=== PATIENT | female | born 1940 | race Caucasian/White ===

== ENCOUNTER 2021-08-01 10:38 | Outpatient (CLI) | payer MEDICARE, SELFPAY ==
--- NOTE | 2021-08-01 10:47 | MR_ITS ---
WS: [id number] MRI LUMBAR SPINE NONCONTRAST HISTORY: LUMBAR Radiculopathy; protrusion OF LUMBAR INTERVERTEBRAL DISC. COMPARISON: 07/24/2021 CT. TECHNIQUE: Sagittal and axial multisequence imaging is submitted. Straightening of the normal cervical lordosis. Abnormal signal in the T3 is probably benign hemangiom a. Mild curvature lumbar spine to the RIGHT. Less than 2 mm anterolisthesis of L3. Benign hemangioma wit hin the L3 vertebral body. Disc desiccation throughout the lumbar spine. No lumbar spine fracture. Conus terminates normally at L1-2 disc level. L1-L2: Annular disc bulging and osteophytic ridging. LEFT paracentral disc protrusion contacts the ve ntral thecal sac. There is an additional smaller RIGHT paracentral disc protrusion. Mild bilateral payne barticular recess narrowing. Bilateral facet joint arthritis. L2-L3: Mild annular disc bulging and facet arthritis. Mild foraminal narrowing. L3-L4: Large extruded disc extends posterior to the L3 vertebral body and measures 13 mm in length. T here is effacement of fat in the LEFT foramen with significant encroachment upon the LEFT traversing L4 nerve root. Nerve root sleeve diverticulum in the RIGHT foramen. Mild bilateral ligamentum flavum hypertrophy. L4-L5: Mild annular disc bulging. Mild ligamentum flavum and facet arthritis. Fluid in the facet join ts. Very mild foraminal narrowing. L5-S1: Very small central disc protrusion. No contact on the nerve roots or high-grade stenosis. Smal l amount of fluid in the facet joints and mild facet arthritis. Status post LEFT nephrectomy. MR/MR lumbar spine wo con* [id number] IMPRESSION: 1. Extruded disc at the L3-4 level extends superior and posterior to L3 verteb ral body significant contact and displacement of the traversing L4 nerve root. Significant narrowing and fat effacement within the proximal LEFT L3-4 foramen. 2. Bilateral paracentral disc protrusions at L1-2 with mild encroachment upon the thecal sac and resulting in mild bilateral subarticular recess stenosis. 3. Status post LEFT nephrectomy.
== END 2021-08-01 10:39 | disposition home or self-care (01) ==
LOC: RADSHAW 10:44
PROVIDERS: PCP Registered Nurse; Visit Provider Registered Nurse
DX: M54.16 Radiculopathy, lumbar region (principal); M51.26 Other intervertebral disc displacement, lumbar region; Z90.5 Acquired absence of kidney
CPT/HCPCS: 72110; 72148

== ENCOUNTER → 2022-08-29 08:12 | Outpatient (BNVA) | payer MEDICARE, SELFPAY | PROVIDERS: PCP Registered Nurse; Visit Provider Internal Medicine Pulmonary Disease | DX: R91.1 Solitary pulmonary nodule (principal); R13.10 Dysphagia, unspecified; I10 Essential (primary) hypertension; Z77.22 Contact with and (suspected) exposure to environmental tobacco smoke (acute) (chronic); R09.82 Postnasal drip; R00.0 Tachycardia, unspecified; I48.91 Unspecified atrial fibrillation | CPT/HCPCS: 99204 ==

== ENCOUNTER → 2022-09-15 09:59 | Outpatient (BNVA) | payer MEDICARE, SELFPAY | PROVIDERS: PCP Registered Nurse; Visit Provider Internal Medicine Cardiovascular Disease | DX: I48.91 Unspecified atrial fibrillation (principal); R06.02 Shortness of breath; I12.9 Hypertensive chronic kidney disease with stage 1 through stage 4 chronic kidney disease, or unspecified chronic kidney disease; E11.22 Type 2 diabetes mellitus with diabetic chronic kidney disease; N18.9 Chronic kidney disease, unspecified; I44.0 Atrioventricular block, first degree; R94.31 Abnormal electrocardiogram [ECG] [EKG] | CPT/HCPCS: 93005; 99204; Q3014 ==

== ENCOUNTER 2022-10-10 10:03 | Outpatient (CLI) | payer MEDICARE, SELFPAY ==
--- NOTE | 2022-10-10 10:15 | USCV_ITS ---
Aniceto Silvia Age: 82 Gender: F : 1940 Exam Date: 10/10/2022 10:20 Ordering Phys: Cecy Valente MD ([email or web address]) Technologist: ELBA Exam Location: [facility] – [place] Indication: SHORTNESS OF BREATH BP: 170 / 60 HR: 68 Rhythm: Sinus Technical Quality: Adequate MEASUREMENTS (Male / Female) Normal Values 2D ECHO LVOT Diameter 2.0 cm LV Ejection Fraction MOD 2C 65.0 % LV Ejection Fraction 2C AL 69.2 % LA Diameter 3.5 cm LA Width 3.6 cm LA Height 4.1 cm RA Width 3.6 cm RA Height 4.1 cm Aorta at Sinotubular Diameter 2.5 cm IVC Diameter 1.6 cm M-MODE Aortic Annulus Diameter 2.4 cm LA Ao Ratio MM 1.4 MV E Point Septal Separation 0.3 cm DOPPLER AV Peak Velocity 144.0 cm/s LVOT Peak Velocity 99.0 cm/s AV Area Cont Eq vti 2.5 cm squared AV Area Cont Eq pk 2.2 cm squared MV Peak Velocity 145.0 cm/s MV Area PHT 4.5 cm squared Mitral E to A Ratio 0.8 MV E' Velocity 47.5 cm/s Mitral E to MV E' Ratio 8.6 Mitral E to LV E' Lateral Ratio 8.9 Mitral E to LV E' Septal Ratio 8.4 TR Peak Velocity 327.0 cm/s TR Peak Gradient 42.8 mmHg TR Mean Velocity 269.4 cm/s TR Mean Gradient 30.3 mmHg TR Velocity Time Integral 121.6 cm TV Peak E Velocity 51.0 cm/s Right Atrial Pressure 3.0 mmHg Pulmonary Artery Systolic Pressu 45.8 mmHg PV Peak Velocity 104.0 cm/s RV Acceleration Time 0.1 s RV Ejection Time 0.4 s RV AcT/ET 0.4 FINDINGS Left Ventricle 1 Right Ventricle Normal right ventricular size and systolic function. Right ventricular systolic pressure 45.8 mmHg. Right Atrium Normal right atrial size. Left Atrium Mildly increased left atrial size. Mitral Valve Mild mitral annular calcification. No mitral valve stenosis. Trace mitral valve regurgitation. Aortic Valve Structurally normal trileaflet aortic valve. No aortic valve stenosis. No aortic valve regurgitation. Tricuspid Valve Structurally normal tricuspid valve. No tricuspid valve stenosis. Trace to mild tricuspid valve regurgitation. Pulmonic Valve Pulmonic valve not well visualized. No pulmonary valve stenosis. No pulmonary valve regurgitation. Pericardium No pericardial effusion. Aorta Normal size aortic root and proximal ascending aorta. IVC Normal IVC dimension with >50% respiratory change of the inferior vena cava. CONCLUSIONS 1. Normal left ventricular size, systolic function and wall thickness, with no regional wall motion abnormalities. Left ventricular ejection fraction is estimated at 65 %. Grade I diastolic dysfunction (abnormal relaxation filling pattern), normal to mildly elevated filling pressures. 2. Trace mitral valve regurgitation. 3. No prior similar studies to compare. Cecy Valente MD (Electronically Signed) Final Date: 17 October 2022 13:00 S
== END 2022-10-10 10:04 | disposition home or self-care (01) ==
PROVIDERS: PCP Registered Nurse; Visit Provider Internal Medicine Cardiovascular Disease
DX: R06.02 Shortness of breath (principal); I34.0 Nonrheumatic mitral (valve) insufficiency
CPT/HCPCS: 93306

== ENCOUNTER 2022-10-22 10:57 | Outpatient (CLI) | payer MEDICARE, SELFPAY ==
[2022-10-22 12:32] LABS: Anion Gap 15.8 (5-19); Blood Urea Nitrogen 36 mg/dL (8-23); Calcium 9.4 mg/dL (8.5-10.5); Carbon Dioxide 27 mmol/L (22-29); Chloride 101 mmol/L (98-107); Glucose 131 mg/dL (65-115); NT Pro B Type Natriuretic Pept 463 pg/mL (0-450); Osmolality Calculated 298 mOsm/kg (285-295); Potassium 4.8 mmol/L (3.5-5.1); Sodium 139 mmol/L (136-145)
== END 2022-10-22 10:58 | disposition home or self-care (01) ==
LOC: LAB 11:00
PROVIDERS: PCP Registered Nurse; Visit Provider Nurse Practitioner Family
DX: I10 Essential (primary) hypertension (principal); I48.91 Unspecified atrial fibrillation
CPT/HCPCS: 36415; 80048; 83880

== ENCOUNTER 2022-11-24 08:58 | Outpatient (CLI) | payer MEDICARE, SELFPAY ==
--- NOTE | 2022-11-24 09:30 | CT_ITS ---
WS: [id number] CT CHEST TECHNIQUE: Noncontrast CT of the chest with coronal and sagittal reformatted images. CLINICAL INFORMATION: lung screening COMPARISON: CT August 11, 2022 DLP: 203.[address] scans at [facility] use at least one of these dose optimization techniques: automated e xposure control; mA and/or kV adjustment per patient size (includes targeted exams where dose is matc hed to clinical indication); or iterative reconstruction. FINDINGS: Previously described hazy slightly spiculated RIGHT upper lobe lesion has improved and essentially re solved. Residual groundglass opacity in the RIGHT upper lobe. Subsegmental atelectasis in the RIGHT m iddle lobe. Slight subsegmental atelectasis RIGHT lower lobe. Opacity in the LEFT upper lobe lung ape x posteriorly has improved and nearly resolved. A few residual groundglass opacities in the LEFT lowe r lobe laterally improved compared to previous. No evidence of new or progressed infiltrates. Small RIGHT thyroid nodules the largest measuring 10 mm. No mediastinal or hilar lymphadenopathy. Cor onary calcification. No axillary lymphadenopathy. Dystrophic calcifications RIGHT breast are unchange d. Adrenal glands are normal. Mild thoracic curve. Mild thoracic kyphosis. CT/CT chest wo con [id number] IMPRESSION: 1. Previously described opacities have improved and nearly resolved compared t o previous compatible with infectious or inflammatory etiologies. 2. No mediastinal or hilar lymphadenopathy. 3. Coronary calcification. 4. A few subcentimeter partially visualized RIGHT thyroid nodules.
== END 2022-11-24 08:59 | disposition home or self-care (01) ==
PROVIDERS: PCP Registered Nurse; Visit Provider Internal Medicine Pulmonary Disease
DX: Z12.2 Encounter for screening for malignant neoplasm of respiratory organs (principal); R91.1 Solitary pulmonary nodule; E04.1 Nontoxic single thyroid nodule
CPT/HCPCS: 71250

== ENCOUNTER → 2022-11-27 09:54 | Outpatient (BNVA) | payer MEDICARE, SELFPAY | PROVIDERS: PCP Registered Nurse; Visit Provider Internal Medicine Pulmonary Disease | DX: R91.8 Other nonspecific abnormal finding of lung field (principal); R13.10 Dysphagia, unspecified; I10 Essential (primary) hypertension; Z86.16 Personal history of COVID-19; R09.82 Postnasal drip; R00.0 Tachycardia, unspecified | CPT/HCPCS: 99214 ==

== ENCOUNTER 2022-12-24 08:38 | Outpatient (CLI) | payer MEDICARE, SELFPAY ==
--- NOTE | 2022-12-24 09:15 | FL_ITS ---
WS: [id number] FL barium swallow [id number] REASON FOR EXAM: Abnormal CT scan of the neck. FLUOROSCOPY TIME: 1min [id number] # OF SPOT FILMS: Multiple FINDINGS: Patient was evaluated in the upright and prone COY position. The swallowing of barium was monitored f luoroscopically with multiple spot films obtained for documentation. The cervical esophagus is normal without intrinsic or extrinsic mass effect. The thoracic esophagus demonstrates no extrinsic or intrinsic mass effect. In the prone position ther e is intermittent loss of the primary peristaltic wave with degeneration into tertiary contractions w hich produce retention of barium and intermittent reflux of this barium retrograde towards the thorac ic inlet. No aspiration identified. There is a small sliding hiatal hernia with non constricting Schatzki ring. FL/FL barium swallow [id number] IMPRESSION: Esophageal dysmotility as above.
== END 2022-12-24 08:39 | disposition home or self-care (01) ==
PROVIDERS: PCP Registered Nurse; Visit Provider Internal Medicine Pulmonary Disease
DX: R13.10 Dysphagia, unspecified (principal); K44.9 Diaphragmatic hernia without obstruction or gangrene
CPT/HCPCS: 74220

== ENCOUNTER → 2023-03-16 10:53 | Outpatient (BNVA) | payer MEDICARE, SELFPAY | PROVIDERS: PCP Registered Nurse; Visit Provider Internal Medicine Cardiovascular Disease | DX: I48.91 Unspecified atrial fibrillation (principal); I12.9 Hypertensive chronic kidney disease with stage 1 through stage 4 chronic kidney disease, or unspecified chronic kidney disease; E11.22 Type 2 diabetes mellitus with diabetic chronic kidney disease; N18.9 Chronic kidney disease, unspecified | CPT/HCPCS: 99214 ==

== ENCOUNTER → 2023-05-28 09:30 | Outpatient (BNVA) | payer MEDICARE, SELFPAY | PROVIDERS: PCP Registered Nurse; Visit Provider Internal Medicine Pulmonary Disease | DX: R91.1 Solitary pulmonary nodule (principal); R13.10 Dysphagia, unspecified; I10 Essential (primary) hypertension; J30.9 Allergic rhinitis, unspecified; Z86.16 Personal history of COVID-19; Z91.128 Patient's intentional underdosing of medication regimen for other reason; Z77.22 Contact with and (suspected) exposure to environmental tobacco smoke (acute) (chronic) | CPT/HCPCS: 99214 ==

== ENCOUNTER 2023-11-25 16:56 | Inpatient (IN) | payer MEDICARE, SELFPAY ==
[2023-11-25] VITALS (8 sets, daily range): BP systolic 138–193; BP diastolic 58–79; PULSE 71–90; RESP 16–28; TEMP 36.9; O2SAT 93–97; BMI 31.3
--- NOTE | 2023-11-25 18:04 | USCV_ITS ---
Silvia Moreland Age: 83 Gender: F : 1940 Exam Date: 11/25/2023 18:48 Ordering Phys: Srinivasan Jin MD Technologist: Exam Location: [facility] [place] Indication: htn crisis BP: 193 / 71 HR: 68 Rhythm: Sinus Technical Quality: Adequate MEASUREMENTS (Male / Female) Normal Values 2D ECHO LV Diastolic Diameter PLAX 4.1 cm 4.2 - 5.9 / 3.9 - 5.3 cm IVS Diastolic Thickness 1.4 cm 0.6 - 1.0 / 0.6 - 0.9 cm IVS Systolic Thickness 1.5 cm LVPW Diastolic Thickness 1.6 cm 0.6 - 1.0 / 0.6 - 0.9 cm LVPW Systolic Thickness 1.7 cm LVOT Diameter 2.2 cm LV Ejection Fraction 2D Teich 66.8 % LV Ejection Fraction MOD 2C 75.4 % LV Ejection Fraction 2C AL 74.7 % LA Diameter 3.0 cm RA Systolic Volume 4C AL 30.1 ml RA Systolic Volume 4C MOD 28.4 ml Aorta at Sinotubular Diameter 2.5 cm IVC Diameter 1.9 cm M-MODE LA Ao Ratio MM 1.1 AV Cusp Separation MM 1.5 cm DOPPLER AV Peak Velocity 157.7 cm/s LVOT Peak Velocity 106.0 cm/s AV Area Cont Eq vti 3.1 cm squared AV Area Cont Eq pk 2.5 cm squared MV Peak Velocity 111.0 cm/s MV Area PHT 9.7 cm squared Mitral E to A Ratio 6.0 TR Peak Velocity 213.0 cm/s TR Peak Gradient 18.1 mmHg TV Peak E Velocity 246.0 cm/s Right Atrial Pressure 3.0 mmHg Pulmonary Artery Systolic Pressu 21.1 mmHg PV Peak Velocity 127.5 cm/s FINDINGS Left Ventricle Moderate concentric left ventricular hypertrophy with normal ejection fraction of 75%.Grade II/IV diastolic dysfunction, moderately elevated filling pressures. Right Ventricle Normal right ventricular systolic function. Right Atrium The right atrium is normal in size. Left Atrium Mildly increased left atrial size. Mitral Valve Mild mitral valve regurgitation. Aortic Valve Thickened aortic valve. Tricuspid Valve Trace tricuspid valve regurgitation. Pulmonic Valve Trace pulmonary valve regurgitation. Pericardium Normal pericardium without effusion. Aorta Normal ascending aorta dimension. IVC Normal inferior vena cava. CONCLUSIONS Moderate concentric left ventricular hypertrophy with normal ejection fraction of 75%. Grade II/IV diastolic dysfunction, moderately elevated filling pressures. Mildly increased left atrial size. Mild mitral valve regurgitation. Thickened aortic valve. Trace tricuspid valve regurgitation. Trace pulmonary valve regurgitation. There is no pericardial effusion. There are no intracardiac masses. Compared to the study from 10/10/2022, there may not be significant change, except for the worsening diastolic dysfunction. Dr Donnie Webb MD FAC (Electronically Signed) Final Date: 25 November 2023 23:52 S
--- NOTE | 2023-11-25 18:09 | P.HP_ITS ---
Providers/Chief Complaint 2 Admitting Physician: Srinivasan Jin MD Primary Care Provider: Cynthia Martinez Chief Complaint: Symptomatic bradycardia History of Present Illness Silvia Moreland is a 83 year old female with past medical history of hypertension, left nephrectomy for RCC presented to the outside ER today because of high blood pressure. Patient states when she woke up today morning she was having headache will mild fogginess so she checked her blood pressures and they were running more than 200 systolics which is unusual for her and she went to the ER. In the ER there was a concern for patient having frequent VPCs and possible bigeminy with high blood pressure so they requested a transfer to [facility] [place]. It seems that the other hospital she had received 2 doses of 10 mg IV hydralazine, bolus of 250 cc of normal saline, full dose of aspirin and oral Zofran. On examination, patient is lying comfortably in bed without any nausea or vomiting. States she took all her morning medications. She denies of having any complaints currently. Denies any chest pain, fluttering in the chest, nausea, vomiting, headache, dizziness, shortness of breath at rest or exertion last few weeks, and a history of CAD but does give family history of congestive heart failure. Blood pressures at 197 systolic with heart rate of 92 bpm with frequent PVCs and occasional bigeminy. Review of Systems 2 General: Reports: 10 or more systems reviewed and unremarkable except in HPI and below Const: Denies: fever(s), chills, body aches, change in appetite, change in weight, malaise, night sweats, diaphoresis, change in sleep pattern, daytime sleepiness or snoring Eyes: Denies: change in vision, blurry vision, photophobia, eye discomfort or eye discharge ENMT: Denies: throat pain, enlarged tonsils, hoarseness, mouth pain, oral sores, dry mouth, tinnitus, nasal congestion or post nasal drip Card: Denies: chest pain, palpitations, irregular heart rhythm, edema, swelling of feet/ankles, lightheadedness, syncope, pre-syncope, dyspnea on exertion, orthopnea, leg pain with exertion or acrocyanosis Resp: Denies: dyspnea, productive cough, non-productive cough, wheezing, stridor, pain on inspiration, change in phlegm color, hemoptysis or chest congestion GI: Denies: abdominal pain, nausea, vomiting, hematemesis, coffee ground emesis, dysphagia, heartburn, diarrhea, constipation, bloating, GI cramping, change in bowel habits, pain on defecation, hematochezia or melena : Denies: flank pain, dysuria, urinary frequency, urinary urgency, urinary hesitancy, nocturia or hematuria Musc: Denies: neck pain, back pain, extremity pain, joint pain, joint swelling, joint redness, joint stiffness or limited range of motion Neuro: Denies: headache(s), numbness in extremities, weakness in extremities, sensory changes, lack of coordination, difficulty walking, frequent falls, dizziness, vertigo, confusion, Slurred speech present, difficulty communicating thoughts or seizure-like activity Psych: Denies: anxiety, depression, mood swings, panic attacks, hopelessness or irritability Endo: Denies: polyuria, polydipsia, tired all the time, cold intolerance, excessive sweating, flushing or heat intolerance Oleg/Lymph: Denies: easy bruising or easy bleeding All/Imm: Denies: tongue swelling, facial swelling or acute wheezing Medications/Allergies Home Medications Medication Instructions Recorded Confirmed Last Taken Type diltiazem HCl 360 mg 360 mg PO DAILY 08/01/21 05/28/23 Unknown History capsule,extended release 24 hr hydrochlorothiazide 25 mg tablet 25 mg PO DAILY 08/01/21 05/28/23 Unknown History enalapril maleate 20 mg tablet 20 mg PO BID 09/15/22 05/28/23 Unknown History multivitamin 1 tab PO DAILY 09/15/22 05/28/23 Unknown History aspirin 81 mg tablet,delayed 81 mg PO DAILY PRN 03/16/23 05/28/23 Unknown History release (Adult Low Dose Aspirin) fluticasone propionate 50 1 spray intranasal BID #18 mL 05/28/23 05/28/23 Unknown Rx mcg/actuation nasal spray,suspension (Flonase Allergy Relief) Allergies Allergy/AdvReac Type Severity Reaction Status Date / Time ciprofloxacin Allergy Intermediate ALGY-Swell Verified 05/28/23 09:37 Lip/Tongue/Throat PFSH Acute 2 PFSH: Medical History (Updated 11/25/23 @ 18:13 by Srinivasan Jin MD) Atrial fibrillation History of kidney cancer CRI (chronic renal insufficiency) Diabetes mellitus S/p nephrectomy (~2014) Hypertension Surgical History S/P thyroidectomy S/P hysterectomy S/P bilateral oophorectomy S/P hip replacement H/O kidney removal Family History Father Hypertension Myocardial infarction Mother Stroke Family/Other CAD (coronary artery disease) Social History Smoking and tobacco/nicotine status: never used tobacco/nicotine Second hand smoke exposure: Yes (reports parents and both smoked) Alcohol intake: never Substance/Drug Use: never Adopted: No Caregiver/support person: Yes Lives independently: Yes Household members: none Housing: House Number of children: 4 Number of grandchildren: 3 Highest education level completed: 8th Grade service: No Current occupational status: retired Current occupational exposures/hazards: No 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 Pets and animals: Yes Sexually active: No Do you think of yourself as: Straight/Heterosexual Current gender identity: Female Special chance needs: No Agree to transfusion: Yes Physical Exam 2 Narrative: General: No acute distress, AO x3 HEENT: PERRLA, pupils bilaterally equal and reactive Chest: Normal vesicular breath sounds, no added sounds, equal good air entry bilaterally CVS: S1-S2 regular, no murmurs, no tachycardia, no gallops, no rubs, frequent missed beats Abdomen: Soft, nontender, no organomegaly, bowel sounds present Neuro: No focal deficits, no facial deformity, AO x3, power 5/5 in all limbs Data 11/25/23 17:33 A&P Assessment and plan (1) Hypertensive urgency: Goal blood pressure less than 140/90 mmHg. Currently more than 190 systolics with frequent VPCs. Patient takes Cardizem to 60 mg oral daily at home, enalapril 20 mg twice daily along with hydrochlorothiazide 25. IV hydralazine 10 mg every 4 hour as needed for systolic blood pressure of more than 160 mmHg. Switch to losartan 100 mg oral daily, start on Coreg 6.25 mg twice daily. Continue Cardizem but for now we will divide within 90 every 6 hours. Will uptitrate antihypertensives as per goal blood pressures. Hold hydrochlorothiazide for now until renal functions are back. If needed can start patient on nitro drip. (2) Frequent PVCs: Asymptomatic. Patient denies any dizziness or falls. It seems patient does have history of arrhythmia in the past for which she was diagnosed of paroxysmal A-fib but was never documented. Currently patient is in normal sinus rhythm. Check CMP, cycle troponins, check echocardiogram, check magnesium, TSH. Depending on the results we will plan for further ACS workup if needed. She does have history of partial thyroidectomy. If all the testing is negative we will plan to discharge patient with an event monitor. (3) Hypertension: As #1 (4) Diabetes mellitus: Past history the patient does not seem to be on any antidiabetic medications. Check A1c. (5) CRI (chronic renal insufficiency): Last creatinine in the chart is 1.2 from 2022. Will monitor CMP. Medically construction and for nephrotoxic drugs. Depending on the BMP will plan for renal ultrasound. Plan Check chest x-ray, EKG, A1c, lipid panel, iron panel. CODE STATUS: Discussed in detail with the patient. She does not want any kind of heroic measures or resuscitation. DNR/DNI. Kalli Moreland Protonix OPD prophylaxis Lovenox for DVT prophylaxis will be the DPOA. Attestations 2 Medical Necessity Statement*: Admission for more than 2 midnights for further evaluation and management of hypertensive urgency, frequent VPCs Critical Care Time: The high probability of a clinically significant, sudden or life threatening deterioration of the patient's [cardiac] system(s) required my full and direct attention, intervention and personal management. The critical care time is as shown. This time is in addition to time spent performing any reported procedures but includes the following: [x] Data and vital sign review and interpretation [x] Patient assessment, examination and intervention [x] Documentation [x] Medication orders and management Coding Level of Care Code Critical Care >/= 30 minutes Critical care time (in minutes): 70 The high probability of a clinically significant, sudden or life threatening deterioration, as referenced in this documentation, required my full and direct attention, intervention and personal management. The critical care time shown is in addition to time spent performing any reported separately billable procedures and includes the following: [x] Data and vital sign review and interpretation [x ] Patient assessment, examination and intervention [x] Medication orders and management [x] Patient/Family updates as able [x] Care Coordination and Documentation. Diagnoses Hypertensive urgency I16.0 Frequent PVCs I49.3 Hypertension I10 Diabetes mellitus E11.9 CRI (chronic renal insufficiency) N18.9
[2023-11-25 18:11] LABS: Procalcitonin 0.07 ng/mL (0-0.5); Thyroid Stimulating Hormone 1.95 uIU/mL (0.27-4.20)
[2023-11-25 18:22] LABS: Alanine Aminotransferase 16 U/L (0-33); Albumin Level 4.1 g/dL (3.5-5.2); Alkaline Phosphatase 85 U/L (35-105); Aspartate Amino Transferase 19 U/L (0-32); Blood Urea Nitrogen 38 mg/dL (8-23); Calcium 9.6 mg/dL (8.5-10.5); Carbon Dioxide 23 mmol/L (22-29); Chloride 102 mmol/L (98-107); Creatinine Clr Calc Pharmacy 29.4759; Globulin 2.7 g/dL (1.3-4.6); Glucose 166 mg/dL (65-115); Iron 45 ug/dL (37-145); Osmolality Calculated 303 mOsm/kg (285-295); Percent Saturation 18.2 % (20-50); Sodium 140 mmol/L (136-145); Total Bilirubin 0.2 mg/dL (0.15-1.2); Total Iron Binding Capacity 247 mcg/dl; Total Protein 6.8 g/dL (6.6-8.7); Unsaturated Iron Binding 202 ug/dL (112-347)
--- NOTE | 2023-11-25 18:23 | XRR_ITS ---
PROCEDURE INFORMATION: Exam: XR Chest Exam date and time: 11/25/2023 7:53 PM Age: 83 years old Clinical indication: Shortness of breath; Additional info: SOB TECHNIQUE: Imaging protocol: Radiologic exam of the chest. Views: 1 view. COMPARISON: CT chest con [id number] 11/24/2022 9:25 AM FINDINGS: Lungs: Unremarkable. No consolidation. Pleural spaces: Unremarkable. No pleural effusion. No pneumothorax. Heart/Mediastinum: Cardiomegaly. Bones/joints: Unremarkable. XR/XR chest 1V portable [id number] IMPRESSION: Cardiomegaly, negative for infiltrate.
--- NOTE | 2023-11-25 18:30 | ECG_ITS ---
[facility] Test Date: 2023-11-25 Pat Name: Silvia Moreland Department: Room: ICU12 Gender: Female Tobacco Stripper: : 1940 Requested By: Srinivasan Jin Order Number: [id number] Trent MD: Faisal Gaytan M.D. Measurements Intervals [place] Rate: 94 P: 75 MI: 169 QRS: 57 QRSD: 86 T: 62 QT: 355 QTc: 445 Interpretive Statements SINUS RHYTHM WITH FREQUENT VENTRICULAR PREMATURE COMPLEXES POSSIBLE LEFT ATRIAL ENLARGEMENT [-0.1mV P-WAVE IN V1/V2] No previous ECG available for comparison Electronically Signed On 11-25-2023 22:11:25 CDT by Faisal Gaytan M.D. [id number]
[2023-11-25 18:33] LABS: Anion Gap 19.7 (5-19); Potassium 4.7 mmol/L (3.5-5.1)
[2023-11-25] MEDS: carvedilol 6.25 mg Tablet PO (18:40)
[2023-11-25] MEDS: enoxaparin 40 mg/0.4 mL Syringe SUBCUT (18:40)
[2023-11-25] MEDS: sodium chloride 0.9% 1,000 ML 75 ML IV (18:41)
[2023-11-25] MEDS: losartan 50 mg Tablet 100 MG PO (18:42)
[2023-11-25 18:43] LABS: Basophils % 0.4 %; Eosinophils % 0.2 %; Hematocrit 41.7 % (36-47); Lymphocytes # 1.1 10^3/uL (0.8-4.8); Mean Corpuscular HGB Conc 32.4 g/dL (30-55); Mean Corpuscular Hemoglobin 30.1 pg (27-33); Mean Corpuscular Volume 92.9 fl (85-98); Mean Platelet Volume 9.5 fL (7.4-10.4); Monocytes # 0.4 10^3/uL (0.2-0.9); Monocytes % 3.8 %; Neutrophils # 9.54 10^3/uL (1.8-7.7); Neutrophils % 85.2 %; Nucleated Red Blood Cells % 0 %; Platelet Count 266 10^3/cmm (157-399); Red Blood Count 4.49 10^6/uL (3.85-5.65); Red Cell Distribution Width 14.4 % (12.1-15.1); White Blood Count 11.19 10^3/uL (3.29-11.43)
[2023-11-25 18:57] LABS: INR 0.96 (0.8-1.2)
[2023-11-25 19:02] LABS: Troponin(5th) Baseline 42 ng/L (0-10)
--- NOTE | 2023-11-25 20:05 | ECG_ITS ---
[facility] Test Date: 2023-11-25 Pat Name: Silvia Moreland Department: Room: ICU12 Gender: Female Broadcast Transmitter Operator: : 1940 Requested By: Srinivasan Jin Order Number: [id number] Trent MD: Faisal Gaytan M.D. Measurements Intervals [place] Rate: 88 P: 79 RI: 158 QRS: 38 QRSD: 90 T: 40 QT: 359 QTc: 436 Interpretive Statements SINUS RHYTHM WITH FREQUENT VENTRICULAR PREMATURE COMPLEXES POSSIBLE LEFT ATRIAL ENLARGEMENT [-0.1mV P-WAVE IN V1/V2] Compared to ECG 11/25/2023 18:30:21 No significant changes Electronically Signed On 11-25-2023 22:12:17 CDT by Faisal Gaytan M.D. [id number]
[2023-11-25 20:51] LABS: Add Urine Culture? No; Add Urine Microscopic? YES; Bacteria Urine TRACE /hpf; Bilirubin Urine Neg (Negative); Blood Urine 2+ (Negative); Glucose Urine UA Norm (Normal); Ketones Urine Negative (Negative); Leukocyte Esterase Urine Negative (Negative); Mucus Urine TRACE /hpf; Nitrate Urine Negative (Negative); Protein Urine 3+ (Negative); RBC Urine 0-4 /hpf (0-2); Specific Gravity, Urine 1.015 (1.005-1.030); Urine Appearance Clear (CLEAR); Urine Color Yellow (Yellow); Urobilinogen Urine Neg (Negative); WBC Urine 0-4 /hpf (0-5); pH Urine 6 (5-7)
[2023-11-25 21:01] LABS: Troponin 5 2HR 45.53 ng/L (0-10); Troponin 5 2HR Delta 3.53 ABS# (0-10)
[2023-11-25] MEDS: hyDRALAzine 20 mg/mL INJ 1 mL 10 MG IVP (21:04)
[2023-11-25 21:50] LABS: Adenovirus Not Detected (NOT DETECT); Chlamydia Pneumoniae Not Detected (NOT DETECT); Coronavirus 229E,HKU1,NL63,OC4 Not Detected (NOT DETECT); Human Metapneumovirus Not Detected (NOT DETECT); Human Rhinovirus/Enterovirus Not Detected (NOT DETECT); Influenza A Not Detected (NOT DETECT); Influenza A H1 Not Detected (NOT DETECT); Influenza A H1-2009 Not Detected (NOT DETECT); Influenza A H3 Not Detected (NOT DETECT); Influenza B Not Detected (NOT DETECT); Mycoplasma Pneumoniae Not Detected (NOT DETECT); Parainfluenza Virus Type 1 Not Detected (NOT DETECT); Parainfluenza Virus Type 2 Not Detected (NOT DETECT); Parainfluenza Virus Type 3 Not Detected (NOT DETECT); Parainfluenza Virus Type 4 Not Detected (NOT DETECT); Respiratory Syncytial Virus A Not Detected (NOT DETECT); Respiratory Syncytial Virus B Not Detected (NOT DETECT); SARS-COV-2 Not Detected (NOT DETECT)
[2023-11-25] MEDS: ondansetron 2 mg/ML SDV 2 mL 4 MG IVP (22:15)
[2023-11-26] VITALS (19 sets, daily range): BP systolic 125–167; BP diastolic 49–74; PULSE 60–83; RESP 15–30; TEMP 36.6–37; O2SAT 92–97; BMI 31.1
[2023-11-26 01:03] LABS: Troponin 5 6HR 44.86 ng/L (0-10); Troponin 5 6HR Delta 2.86 ng/L (0-12)
[2023-11-26] MEDS: acetaminophen 325 mg Tablet 650 MG PO (03:07)
[2023-11-26] MEDS: hyDRALAzine 20 mg/mL INJ 1 mL 10 MG IVP (03:10)
[2023-11-26 03:56] LABS: Basophils # 0.1 10^3/uL (0.0-0.1); Basophils % 0.7 %; Eosinophils % 0.2 %; Hematocrit 38.7 % (36-47); Lymphocytes # 1.5 10^3/uL (0.8-4.8); Lymphocytes % 15.2 %; Mean Corpuscular HGB Conc 32.3 g/dL (30-55); Mean Corpuscular Hemoglobin 30.3 pg (27-33); Mean Corpuscular Volume 93.7 fl (85-98); Mean Platelet Volume 9.4 fL (7.4-10.4); Monocytes # 0.5 10^3/uL (0.2-0.9); Monocytes % 4.5 %; Neutrophils # 8.01 10^3/uL (1.8-7.7); Neutrophils % 79.1 %; Nucleated Red Blood Cells % 0 %; Platelet Count 246 10^3/cmm (157-399); Red Blood Count 4.13 10^6/uL (3.85-5.65); Red Cell Distribution Width 14.5 % (12.1-15.1); White Blood Count 10.13 10^3/uL (3.29-11.43)
[2023-11-26 04:14] LABS: Alanine Aminotransferase 13 U/L (0-33); Albumin Level 3.6 g/dL (3.5-5.2); Alkaline Phosphatase 75 U/L (35-105); Anion Gap 16.6 (5-19); Aspartate Amino Transferase 15 U/L (0-32); Blood Urea Nitrogen 37 mg/dL (8-23); Calcium 8.8 mg/dL (8.5-10.5); Carbon Dioxide 24 mmol/L (22-29); Chloride 103 mmol/L (98-107); Creatinine Clr Calc Pharmacy 29.4759; Globulin 3.2 g/dL (1.3-4.6); Glucose 164 mg/dL (65-115); Magnesium 1.8 mg/dL (1.7-2.3); Osmolality Calculated 300 mOsm/kg (285-295); Phosphorus 4.1 mg/dL (2.5-4.5); Potassium 4.6 mmol/L (3.5-5.1); Sodium 139 mmol/L (136-145); Total Bilirubin 0.3 mg/dL (0.15-1.2); Total Protein 6.8 g/dL (6.6-8.7)
[2023-11-26 04:17] LABS: Chol HDL Ratio 4.64 mg/dL (0.0-4.40); Cholesterol 274 mg/dL (0-200); HDL Cholesterol 59 mg/dL (60-100); LDL Cholesterol Calculated 181 mg/dL (50-129); LDL HDL Ratio 3.07 RATIO (0.00-3.22); Triglycerides 171 mg/dL (0-150)
[2023-11-26 04:19] LABS: Estmated Average Glucose 163; Hemoglobin A1C 7.3 % (4.0-6.0)
[2023-11-26] MEDS: dilTIAZem 60 mg Tablet 90 MG PO (06:32)
[2023-11-26] MEDS: sodium chloride 0.9% 1,000 ML 75 ML IV (07:45)
[2023-11-26] MEDS: losartan 50 mg Tablet 100 MG PO (08:14)
[2023-11-26] MEDS: pantoprazole DR 40 mg Tablet PO (08:14)
[2023-11-26] MEDS: carvedilol 6.25 mg Tablet PO ×2 (08:14→17:56)
[2023-11-26] MEDS: aspirin 81 mg EC Tablet PO (08:40)
--- NOTE | 2023-11-26 12:44 | PC.NURSE ---
Transfer Note Patient transferred to CSU room 105 from ICU via wheelchair. Handoff report given to MONICA Mcnulty. Patient oriented to environment and equipment. Covering service notified. Orders reviewed and will continue to monitor. This nurse notified Kalli, patient friend, that patient was being transferred to CSU room 105. Upon transfer patient is alert/oriented on room air, no wounds or skin issues noted.
--- NOTE | 2023-11-26 13:25 | P.PN_ITS ---
Subjective 2 Subjective: No acute vents overnight. Patient denies any nausea, vomiting, headache. States she is feeling a lot better. Denies having any episodes of palpitations or thumping in her chest. Denies any dizziness. Blood pressures have remained stable though it seems she required 2 doses of 10 mg of IV hydralazine overnight. Vitals/I&O/Wt Last Vital Signs Temp 97.8 F 11/26/23 08:00 Pulse 66 11/26/23 12:00 Resp 30 H 11/26/23 12:00 BP 145/67 11/26/23 12:00 Pulse Ox 95 11/26/23 12:00 O2 Del Method Room Air 11/26/23 06:00 11/25/23 11/26/23 11/26/23 22:59 06:59 14:59 Intake Total 240 / 240 915.00 / 1155.00 915 / 915 Balance 240 / 240 915.00 / 1155.00 915 / 915 Weight last 48 hrs Weight 79.832 kg Weight 80.286 kg Physical Exam 2 Narrative: General: No acute distress, AO x3 HEENT: PERRLA, pupils bilaterally equal and reactive Chest: Normal vesicular breath sounds, no added sounds, equal good air entry bilaterally CVS: S1-S2 regular, no murmurs, no tachycardia, no gallops, no rubs, frequent missed beats Abdomen: Soft, nontender, no organomegaly, bowel sounds present Neuro: No focal deficits, no facial deformity, AO x3, power 5/5 in all limbs Data 11/26/23 03:45 11/26/23 03:45 Micro: Microbiology 11/25/23 18:27 Blood Culture - Preliminary Blood SPECIMEN COLLECTED 11/25/23 18:21 Blood Culture - Preliminary Blood SPECIMEN COLLECTED A&P Assessment and plan (1) Hypertensive urgency: Goal blood pressure less than 140/90 mmHg. Blood pressure is better controlled. Patient takes Cardizem to 60 mg oral daily at home, enalapril 20 mg twice daily along with hydrochlorothiazide 25. Continue losartan 100 mg oral daily, Coreg 6.25 mg twice daily, decrease dose of Cardizem at 60 mg 4 times daily. If needed will add oral hydralazine to reach goal blood pressures. IV hydralazine 10 mg every 4 hour as needed for systolic blood pressure of more than 160 mmHg. (2) Frequent PVCs: Asymptomatic. Patient denies any dizziness or falls. No episodes of bradycardia overnight. It seems patient does have history of arrhythmia in the past for which she was diagnosed of paroxysmal A-fib but was never documented. Currently patient is in normal sinus rhythm. Appreciate electrolytes, troponin. Echocardiogram does not show any regional wall motion abnormality, structural heart disease or decreased EF. 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 Plan for event monitor on discharge. (3) Hypertension: As #1 (4) Diabetes mellitus: Past history the patient does not seem to be on any antidiabetic medications. A1c 7.3. Patient will benefit with Jardiance on discharge given diastolic type dysfunction as well. (5) CRI (chronic renal insufficiency): Last creatinine in the chart is 1.2 from 2022. Creatinine stable at 1.4. Patient's oral intake as well. Hold off on any further IV fluids. Medically construction and for nephrotoxic drugs. Depending on the BMP will plan for renal ultrasound. Plan Hyperlipidemia: Consistent on lipid panel. Start on baby aspirin and atorvastatin 40 mg oral daily. CODE STATUS: Discussed in detail with the patient. She does not want any kind of heroic measures or resuscitation. DNR/DNI. Kalli Moreland Protonix OPD prophylaxis Lovenox for DVT prophylaxis will be the DPOA. Transfer to [facility]. Attestations 2 Medical Necessity Statement*: Requires further hospitalization for management of uncontrolled hypertension requiring further adjustment in antihypertensives, symptomatic frequent VPCs Diagnoses Hypertensive urgency I16.0 Frequent PVCs I49.3 Hypertension I10 Diabetes mellitus E11.9 CRI (chronic renal insufficiency) N18.9
[2023-11-26] MEDS: dilTIAZem 60 mg Tablet PO ×2 (15:04→19:41)
[2023-11-26] MEDS: enoxaparin 40 mg/0.4 mL Syringe SUBCUT (17:55)
[2023-11-26] MEDS: atorvastatin 40 mg Tablet PO (19:41)
--- NOTE | 2023-11-26 20:23 | PC.NURSE ---
This RN agrees with all documentation and administrations made by SN Kaylan.
[2023-11-27 03:30] LABS: Basophils # 0.1 10^3/uL (0.0-0.1); Basophils % 0.7 %; Eosinophils # 0.2 10^3/uL (0.0-0.8); Eosinophils % 2.1 %; Hematocrit 32.7 % (36-47); Lymphocytes # 2.5 10^3/uL (0.8-4.8); Lymphocytes % 29.3 %; Mean Corpuscular HGB Conc 30.6 g/dL (30-55); Mean Corpuscular Volume 94.8 fl (85-98); Monocytes # 0.7 10^3/uL (0.2-0.9); Monocytes % 8.4 %; Neutrophils # 4.98 10^3/uL (1.8-7.7); Neutrophils % 59.1 %; Nucleated Red Blood Cells % 0 %; Platelet Count 253 10^3/cmm (157-399); Red Blood Count 3.45 10^6/uL (3.85-5.65); Red Cell Distribution Width 14.6 % (12.1-15.1); White Blood Count 8.43 10^3/uL (3.29-11.43)
[2023-11-27 03:37] VITALS: BP 154/60; PULSE 71; RESP 15; TEMP 36.4; O2SAT 95
[2023-11-27 03:45] LABS: Alanine Aminotransferase 12 U/L (0-33); Albumin Level 3.3 g/dL (3.5-5.2); Alkaline Phosphatase 61 U/L (35-105); Anion Gap 15.3 (5-19); Aspartate Amino Transferase 15 U/L (0-32); Blood Urea Nitrogen 44 mg/dL (8-23); Calcium 8.3 mg/dL (8.5-10.5); Carbon Dioxide 24 mmol/L (22-29); Chloride 105 mmol/L (98-107); Creatinine Clr Calc Pharmacy 20.9511; Globulin 2.4 g/dL (1.3-4.6); Glucose 110 mg/dL (65-115); Osmolality Calculated 302 mOsm/kg (285-295); Potassium 4.3 mmol/L (3.5-5.1); Sodium 140 mmol/L (136-145); Total Bilirubin 0.3 mg/dL (0.15-1.2); Total Protein 5.7 g/dL (6.6-8.7)
[2023-11-27 05:13] VITALS: PULSE 59
[2023-11-27 07:05] VITALS: BP 167/68; PULSE 80; RESP 24; TEMP 36.4; O2SAT 95
[2023-11-27 08:06] VITALS: BP 167/68
[2023-11-27] MEDS: pantoprazole DR 40 mg Tablet PO (08:06)
[2023-11-27] MEDS: aspirin 81 mg EC Tablet PO (08:06)
[2023-11-27] MEDS: losartan 50 mg Tablet 100 MG PO (08:06)
[2023-11-27] MEDS: dilTIAZem 60 mg Tablet PO (08:07)
--- NOTE | 2023-11-27 08:33 | CT_ITS ---
WS: [id number] CT ABDOMEN PELVIS TECHNIQUE: Noncontrast CT of the abdomen and pelvis with coronal and sagittal reformatted images. CLINICAL INFORMATION: madeline on ckd COMPARISON: CT abdomen pelvis [address] pelvis 2020 DLP: 720.[address] scans at [facility] use at least one of these dose optimization techniques: automated e xposure control; mA and/or kV adjustment per patient size (includes targeted exams where dose is matc hed to clinical indication); or iterative reconstruction. FINDINGS: Prior LEFT nephrectomy. Lung bases are well aerated. Noncontrast liver is normal. Normal noncontrast spleen. A few incidenta l low-attenuation lesions in the spleen likely small cysts. Normal noncontrast pancreas. Enlarged lym ph nodes along the central mesentery are similar in appearance to the lumbar spine CT 2020 the larges t measuring 1.6 cm. 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 Adrenal glands are normal. No hydronephrosis in the RIGHT kidney. LEFT BRETT degrades images in the pel vis. Sigmoid diverticulosis. No evidence of acute diverticulitis. Normal appendix in the RIGHT lower quadrant. Partially visualized low-attenuation lesion in RIGHT inferior hilum appears stable since 10/12/2021 and likely represents a small incidental bronchogenic cyst measuring 1.5 cm. IMPRESSION: 1. Prior LEFT nephrectomy. No hydronephrosis in the RIGHT kidney. 2. A few enlarged lymph nodes along the central mesentery with surrounding hazy induration can be se en with mesenteric panniculitis and has been associated with lymphoma. Recommend clinical correlation and 6-month follow-up CT abdomen pelvis. Appearance is similar to the [address] 3. Small esophageal hiatal hernia. 4. Sigmoid diverticulosis. 5. No other acute findings.
--- NOTE | 2023-11-27 08:48 | PC.CHAP ---
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 [] Patient/Family/Request visit [] Outpatient visit [] Follow-up visit [] Physician referral [] Code/Alert [x] Routine visit [] Staff referral [] Actively dying [] Patient sleeping [] Family support [] [] Out of room [] Palliative care [] [] Receiving care in room [] Pre-surgical visit [] Trauma [] Long length of stay [] ICU visit [] Other: Relational/Emotional Strength [x] Patient feels connected with others/family/visitors/staff [] Distress [] Loneliness/isolation [] Abandonment Spirituality of Patient [x] Person of Adriana [x] Attends Anabaptism of their Adriana [x] Believes in Prayer [x] Reads Bible or Bahai materials [] There are Spiritual issues to be addressed Stake Driver Interventions [x] Prayer [x] Active listening [x] Non-anxious presence [x] Spiritual/emotional support [] Crisis/trauma care [] Spiritual counseling [] Bereavement support [] Provided bereavement packet [] Provided Bible/devotional materials [] Provided toy/stuffed animal, coloring book to patient or family member [] Provided Communion [] Anointing/[place] [] Salvation [x] Completed spiritual assessment [] Other: Impact on Illness or Injury [] Angry [] Fearful [] Anxious [] Often cries [] Exhaustion [] Unable to work [] Unable to attend hindu [] Unable to walk/stand [] Unable to read [] Unable to drive [] Unable to eat/drink [] Unable to sleep [] Unable to be with family [] Patient intubated [] Other: Summary Time spent with patient 15 min
--- NOTE | 2023-11-27 09:00 | P.DS_ITS ---
Discharge Providers Date of Admission: 11/25/23 16:56 Date of Discharge: November 27, 2023 Attending Provider at Admission: Srinivasan Jin MD Attending Provider at Discharge: Srinivasan Jin MD Primary Care Provider: Cynthia Martinez Diagnoses at Discharge Discharge Diagnosis (1) Hypertensive urgency: Status: Acute (2) Frequent PVCs: Status: Acute (3) Hypertension: Status: Acute (4) Diabetes mellitus: Status: Acute (5) CRI (chronic renal insufficiency): Status: Acute Reason for Visit Reason for Visit: Symptomatic bradycardia Brief History: Silvia Moreland is a 83 year old female with past medical history of hypertension, left nephrectomy for RCC presented to the outside ER today because of high blood pressure. Patient states when she woke up today morning she was having headache will mild fogginess so she checked her blood pressures and they were running more than 200 systolics which is unusual for her and she went to the ER. In the ER there was a concern for patient having frequent VPCs and possible bigeminy with high blood pressure so they requested a transfer to [facility]. It seems that the other hospital she had received 2 doses of 10 mg IV hydralazine, bolus of 250 cc of normal saline, full dose of aspirin and oral Zofran. On examination, patient is lying comfortably in bed without any nausea or vomiting. States she took all her morning medications. She denies of having any complaints currently. Denies any chest pain, fluttering in the chest, nausea, vomiting, headache, dizziness, shortness of breath at rest or exertion last few weeks, and a history of CAD but does give family history of congestive heart failure. Blood pressures at 197 systolic with heart rate of 92 bpm with frequent PVCs and occasional bigeminy. Hospital Course Hospital Course Patient was admitted for further monitoring and management of antihypertensives. Her oral antihypertensives were adjusted and her systolic blood pressures have been doing better. Her hospitalization was otherwise unremarkable and she did not have any episodes of bradycardia during hospitalization but did have frequent VPCs. Patient denied any dizziness, chest pain, shortness of breath both at rest and ambulation during hospitalization. Echocardiogram was done which showed no regional wall motion normality with a normal EF and grade 2 diastolic dysfunction and mild LVH. Troponin cycled remain negative. CT abdomen pelvis was done which showed left nephrectomy with some concerns of mesenteric lymphadenopathy advising for repeat CT scan in 6 months. She has been discharged in hemodynamically stable condition on adjusted antihypertensives. She is to take Coreg 6.25 mg twice daily, Cardizem to 40 mg daily, losartan 100 mg daily. Hydrochlorothiazide has been continued as before. She is also taking Jardiance going forward. She would benefit with nephrology follow-up as an outpatient given single kidney and CKD. Discharge plan discussed in detail with the patient and she verbalized understanding. She is also being discharged on event monitor given significant bigeminy and VPCs. Event monitor will be followed up with Dr. Gaytan from cardiology office. Physical Exam Narrative: General: No acute distress, AO x3 HEENT: PERRLA, pupils bilaterally equal and reactive Chest: Normal vesicular breath sounds, no added sounds, equal good air entry bilaterally CVS: S1-S2 regular, no murmurs, no tachycardia, no gallops, no rubs, frequent missed beats Abdomen: Soft, nontender, no organomegaly, bowel sounds present Neuro: No focal deficits, no facial deformity, AO x3, power 5/5 in all limbs Discharge Data Studies Completed and Pending Completed Studies During Hospitalization Category Date Time Status XR chest 1V portable [id number] Routine Exams 11/25/23 18:23 Completed CV. echo complete* [id number] Routine Ultrasound 11/25/23 18:04 Completed Pending at discharge Category Date Time Status CT abdomen pelvis wo con [id number] Routine Cat Scan 11/27/23 08:33 Ordered Blood Culture Stat Lab 11/25/23 18:27 Results Urine Creatinine Routine Lab 11/27/23 08:59 Uncollected Urine Eosinophils Routine Lab 11/27/23 08:59 Uncollected Urine Random Lytes Routine Lab 11/27/23 08:59 Uncollected Radiology Impressions Chest X-Ray 11/25/23 18:23 IMPRESSION: Cardiomegaly, negative for infiltrate. Echocardiogram: CONCLUSIONS Moderate concentric left ventricular hypertrophy with normal ejection fraction of 75%. Grade II/IV diastolic dysfunction, moderately elevated filling pressures. Mildly increased left atrial size. Mild mitral valve regurgitation. Thickened aortic valve. Trace tricuspid valve regurgitation. Trace pulmonary valve regurgitation. There is no pericardial effusion. There are no intracardiac masses. Compared to the study from 10/10/2022, there may not be significant change, except for the worsening diastolic dysfunction. Dr Donnie Webb MD [facility] (Electronically Signed) Final Date: 25 November 2023 23:52 Laboratory Results WBC 8.43 10^3/uL (3.29-11.43) 11/27/23 03:05 RBC 3.45 10^6/uL (3.85-5.65) L 11/27/23 03:05 Hgb 10.00 g/dL (11.27-16.99) L 11/27/23 03:05 Hct 32.7 % (36-47) L 11/27/23 03:05 MCV 94.8 fl (85-98) 11/27/23 03:05 MCH 29.0 pg (27-33) 11/27/23 03:05 MCHC 30.6 g/dL (30-55) D 11/27/23 03:05 RDW 14.6 % (12.1-15.1) 11/27/23 03:05 Plt Count 253 10^3/cmm (157-399) 11/27/23 03:05 MPV 10.0 fL (7.4-10.4) 11/27/23 03:05 Neut % (Auto) 59.1 % 11/27/23 03:05 Lymph % (Auto) 29.3 % 11/27/23 03:05 [place] % (Auto) 8.4 % 11/27/23 03:05 Eos % (Auto) 2.1 % 11/27/23 03:05 Baso % (Auto) 0.7 % 11/27/23 03:05 Neut # (Auto) 4.98 10^3/uL (1.8-7.7) 11/27/23 03:05 Lymph # (Auto) 2.5 10^3/uL (0.8-4.8) 11/27/23 03:05 [place] # (Auto) 0.7 10^3/uL (0.2-0.9) 11/27/23 03:05 Eos # (Auto) 0.2 10^3/uL (0.0-0.8) 11/27/23 03:05 Baso # (Auto) 0.1 10^3/uL (0.0-0.1) 11/27/23 03:05 Nucleated RBC % (auto) 0 % 11/27/23 03:05 Nucleated RBCs # 0.0 /100WBC 11/27/23 03:05 PT 13.00 SECONDS (12.1-14.9) 11/25/23 18:21 INR 0.96 (0.8-1.2) 11/25/23 18:21 Sodium 140 mmol/L (136-145) 11/27/23 03:05 Potassium 4.3 mmol/L (3.5-5.1) 11/27/23 03:05 Chloride 105 mmol/L (98-107) 11/27/23 03:05 Carbon Dioxide 24 mmol/L (22-29) 11/27/23 03:05 Anion Gap 15.3 (5-19) 11/27/23 03:05 BUN 44 mg/dL (8-23) H 11/27/23 03:05 Creatinine 2.0 mg/dL (0.5-0.9) H 11/27/23 03:05 GFR Calculation Not Reportable 11/27/23 03:05 Glucose 110 mg/dL (65-115) 11/27/23 03:05 Estimat Average Glucose 163 11/26/23 03:45 Hemoglobin A1c 7.3 % (4.0-6.0) H 11/26/23 03:45 Calculated Osmolality 302 mOsm/kg (285-295) H 11/27/23 03:05 Calcium 8.3 mg/dL (8.5-10.5) L 11/27/23 03:05 Phosphorus 4.1 mg/dL (2.5-4.5) 11/26/23 03:45 Magnesium 1.8 mg/dL (1.7-2.3) 11/26/23 03:45 Iron 45 ug/dL (37-145) 11/25/23 17:33 TIBC 247 mcg/dl 11/25/23 17:33 % Saturation 18.2 % (20-50) L 11/25/23 17:33 Unsat Iron Binding 202 ug/dL (112-347) 11/25/23 17:33 Total Bilirubin 0.3 mg/dL (0.15-1.2) 11/27/23 03:05 AST 15 U/L (0-32) 11/27/23 03:05 ALT 12 U/L (0-33) 11/27/23 03:05 Alkaline Phosphatase 61 U/L (35-105) 11/27/23 03:05 Troponin T Baseline 42 ng/L (0-10) H 11/25/23 18:21 Troponin T 120 Minute 45.53 ng/L (0-10) H 11/25/23 20:35 Delta Troponin T 3.53 ABS# (0-10) 11/25/23 20:35 Troponin T Hi Sens 6Hr 44.86 ng/L (0-10) H 11/26/23 00:38 Troponin T Hi Sens 6Hr Delta 2.86 ng/L (0-12) 11/26/23 00:38 Total Protein 5.7 g/dL (6.6-8.7) L 11/27/23 03:05 Albumin 3.3 g/dL (3.5-5.2) L 11/27/23 03:05 Globulin 2.4 g/dL (1.3-4.6) 11/27/23 03:05 Triglycerides 171 mg/dL (0-150) H 11/26/23 03:45 Cholesterol 274 mg/dL (0-200) H 11/26/23 03:45 LDL Cholesterol, Calc 181 mg/dL (50-129) H 11/26/23 03:45 HDL Cholesterol 59 mg/dL (60-100) L 11/26/23 03:45 LDL/HDL Ratio 3.07 RATIO (0.00-3.22) 11/26/23 03:45 Cholesterol/HDL Ratio 4.64 mg/dL (0.0-4.40) H 11/26/23 03:45 Procalcitonin 0.07 ng/mL (0-0.5) 11/25/23 17:33 TSH 1.95 uIU/mL (0.27-4.20) 11/25/23 17:33 Urine Color Yellow (Yellow) 11/25/23 20:20 Urine Appearance Clear (CLEAR) 11/25/23 20:20 Urine pH 6 (5-7) 11/25/23 20:20 Ur Specific [place] 1.015 (1.005-1.030) 11/25/23 20:20 Urine Protein 3+ (Negative) H 11/25/23 20:20 Urine Glucose (UA) Norm (Normal) 11/25/23 20:20 Urine Ketones Negative (Negative) 11/25/23 20:20 Urine Blood 2+ (Negative) H 11/25/23 20:20 Urine Nitrate Negative (Negative) 11/25/23 20:20 Urine Bilirubin Neg (Negative) 11/25/23 20:20 Urine Urobilinogen Neg mg/dL (Negative) 11/25/23 20:20 Ur Leukocyte Esterase Negative (Negative) 11/25/23 20:20 Urine RBC 0-4 /hpf (0-2) H 11/25/23 20:20 Urine WBC 0-4 /hpf (0-5) H 11/25/23 20:20 Ur Squamous Epith Cells 5-10 /hpf (0-5) H 11/25/23 20:20 Amorphous Sediment Not Reportable 11/25/23 20:20 Urine Bacteria Trace /hpf (NONE) 11/25/23 20:20 Urine Mucus Trace /hpf 11/25/23 20:20 Adenovirus (PCR) Not detected (NOT DETECT) 11/25/23 19:39 C. pneumoniae DNA (PCR) Not detected (NOT DETECT) 11/25/23 19:39 Coronavirus 229E (PCR) Not detected (NOT DETECT) 11/25/23 19:39 Human Metapneumovir PCR Not detected (NOT DETECT) 11/25/23 19:39 Influenza A (H1) PCR Not detected (NOT DETECT) 11/25/23 19:39 Influ A (H1/09) PCR Not detected (NOT DETECT) 11/25/23 19:39 Influenza A (H3) PCR Not detected (NOT DETECT) 11/25/23 19:39 Influenza Type A (PCR) Not detected (NOT DETECT) 11/25/23 19:39 Influenza Type B (PCR) Not detected (NOT DETECT) 11/25/23 19:39 M. pneumoniae (PCR) Not detected (NOT DETECT) 11/25/23 19:39 Parainfluenza 1 (PCR) Not detected (NOT DETECT) 11/25/23 19:39 Parainfluenza 2 (PCR) Not detected (NOT DETECT) 11/25/23 19:39 Parainfluenza 3 (PCR) Not detected (NOT DETECT) 11/25/23 19:39 Parainfluenza 4 (PCR) Not detected (NOT DETECT) 11/25/23 19:39 RSV Type A (PCR) Not detected (NOT DETECT) 11/25/23 19:39 RSV Type B (PCR) Not detected (NOT DETECT) 11/25/23 19:39 Entero/Rhino (PCR) Not detected (NOT DETECT) 11/25/23 19:39 SARS-CoV-2 (PCR) Not detected (NOT DETECT) 11/25/23 19:39 Vitals Last Vital Signs Temp 97.6 F 11/27/23 07:05 Pulse 80 11/27/23 07:05 Resp 24 H 11/27/23 07:05 BP 167/68 11/27/23 08:06 Pulse Ox 95 11/27/23 07:05 O2 Del Method Room Air 11/27/23 07:05 Discharge Plan Discharge Patient Disposition: Home Condition: Stable Prescriptions: New losartan 50 mg Tablet 100 mg PO DAILY Qty: 60 0RF atorvastatin 40 mg Tablet 40 mg PO BEDTIME Qty: 30 0RF carvedilol 6.25 mg Tablet 6.25 mg PO BID Qty: 60 0RF Cardizem CD 240 mg capsule,extended release 24hr 240 mg PO Q24H Qty: 30 0RF Jardiance 10 mg tablet 10 mg PO DAILY Qty: 30 0RF Continued hydrochlorothiazide 25 mg tablet 25 mg PO DAILY multivitamin Tablet 1 tab PO DAILY clobetasol 0.05 % ointment 1 applic TOPICAL BID PRN (Reason: UNKNOWN) Flonase Allergy Relief 50 mcg/actuation spray,suspension 1 spray intranasal BID PRN (Reason: ALLERGIES) Rx Instructions: administer into each nostril Changed Adult Low Dose Aspirin 81 mg tablet,delayed release (DR/EC) 81 mg PO DAILY Qty: 30 0RF Discontinued diltiazem HCl 360 mg capsule,extended release 24hr 360 mg PO DAILY enalapril maleate 20 mg tablet 20 mg PO BID Discharge Orders: Discharge Order (Routine); Ordered 11/27/23 Ordered By: Srinivasan Jin Other Ambulatory Orders: MCT/Event Monitor 21 Days (Routine) Timeframe: 1 Week Facility: [facility] - Location: Radiology Ordered By: Srinivasan Jin Referrals: Cynthia Martinez [Primary Care Provider] - 12/01/23 1:00 pm (Your Follow up appointment with Cynthia Martinez will be at the [place] Office: [facility] [address]) [place], PROFESSOR OF LITERATURE [Nurse Practitioner] - 12/02/23 10:00 am (This is the appointment to get the Event Monitor placed. Please arrive a few minutes early for paperwork. Thank you.) Discharge Diet: Cardiac and Diabetic Discharge Activity: Resume usual activity and Increase activity as tolerated Patient Instructions: Diltiazem (By mouth) (Cardizem, Cardizem CD, Cardizem LA, Cardizem SR), Aspirin (By mouth) ([place] Extra Strength, Bentley Aspirin Children's,..., Losartan (By mouth) (Cozaar), Atorvastatin (By mouth) (Lipitor, Atorvaliq), Carvedilol (By mouth) (Coreg, Coreg CR, Hypertenevide-12.5), Empagliflozin (By mouth) (Jardiance), Opioid Safety Activity Restrictions/Additional Instructions: Please repeat BMP in 1 week. You should follow-up with a company controller as an outpatient as well. Multiple medication changes have been done. For now going forward for blood pressure takes carvedilol 6.25 mg twice daily, losartan 100 mg daily, Cardizem to 40 mg daily. Do not take Cardizem 360 mg and enalapril anymore. You should also take Jardiance which is for type 2 diabetes mellitus and diastolic heart failure. Discharge Attestations Time Spent in Discharge Care*: greater than 30 min Specific Discharge Activities: educating patient, discussing with pcp/other providers, discussing with upper caser/social workers/dc planners, documenting/other paperwork and evaluating patient/reviewing data Status at Discharge: Cognitive status at discharge: cognitively intact , Behavioral status at discharge: cooperative , Functional status at discharge: independent ambulation , Overall status at discharge: patient is back to baseline Quality Metrics Clinical Quality Measures [ No reported AMI, CVA or VTE this stay] Coding Level of Care Code 42825 Total time (in minutes) for Discharge: 60 Diagnoses Hypertensive urgency I16.0 Frequent PVCs I49.3 Hypertension I10 Diabetes mellitus E11.9 CRI (chronic renal insufficiency) N18.9
--- NOTE | 2023-11-27 10:12 | PC.SOCIAL ---
IMM Update pg 2 of IMM Updated and reviewed w/ patient. Copy provided and copy dated, initialed and placed in chart.
[2023-11-27 10:56] LABS: Potassium, Radom Urine 13 mmol/L; Urine Creatinine 28 mg/dL (28-217); Urine Random Chloride 36 mmol/L; Urine Random Sodium 44 mmol/L
[2023-11-27] MEDS: carvedilol 6.25 mg Tablet PO (11:22)
[2023-11-27 11:25] VITALS: BP 161/65; PULSE 64; RESP 25; TEMP 36.8; O2SAT 94
--- NOTE | 2023-11-27 13:15 | PC.NURSE ---
Discharge Note Patient discharged to home via bed accompanied by sister. Discharge instructions reviewed with patient and/or service representative. Mobile pharmacy medications and/or prescriptions provided. Belongings/home medications returned.
[2023-11-27 15:23] LABS: Eosinophil Urine No Eosinophils Seen
== END 2023-11-27 13:07 | disposition home or self-care (01) | DRG 305 ==
LOC: ICU 18:57 → CSU 11-26 12:17
PROVIDERS: Admitting Provider Student in an Organized Health Care Education/Training Program; PCP Registered Nurse; Visit Provider Student in an Organized Health Care Education/Training Program
DX: I16.0 Hypertensive urgency (principal); I50.30 Unspecified diastolic (congestive) heart failure; I13.0 Hypertensive heart and chronic kidney disease with heart failure and stage 1 through stage 4 chronic kidney disease, or unspecified chronic kidney disease; N18.9 Chronic kidney disease, unspecified; E11.22 Type 2 diabetes mellitus with diabetic chronic kidney disease; I25.10 Atherosclerotic heart disease of native coronary artery without angina pectoris; I48.91 Unspecified atrial fibrillation; E89.0 Postprocedural hypothyroidism; I49.3 Ventricular premature depolarization; Z66 Do not resuscitate; E78.5 Hyperlipidemia, unspecified; Z11.52 Encounter for screening for COVID-19; Z79.82 Long term (current) use of aspirin; Z90.5 Acquired absence of kidney; Z85.528 Personal history of other malignant neoplasm of kidney
CPT/HCPCS: 36415; 71045; 74176; 80053; 80061; 81001; 82436; 82570; 83036; 83540; 83550; 83735; 84100; 84133; 84145; 84300; 84443; 84484; 85025; 85610; 85999; 87040; 87486; 87581; 87633; 93005; 93306; 94664; 96372; 96376; J0360; J1650; J2405; J7030

== ENCOUNTER → 2023-12-15 12:41 | Outpatient (BNVA) | payer MEDICARE, SELFPAY | PROVIDERS: PCP Registered Nurse; Visit Provider Nurse Practitioner Family | DX: I10 Essential (primary) hypertension (principal); I48.0 Paroxysmal atrial fibrillation; I49.3 Ventricular premature depolarization | CPT/HCPCS: 99214 ==

== ENCOUNTER 2024-02-12 11:31 | Emergency (ER) | payer MEDICARE, SELFPAY ==
[2024-02-12 11:37] VITALS: BP 123/63; PULSE 63; RESP 18; TEMP 36.7; O2SAT 93; BMI 28.7
[2024-02-12 11:40] VITALS: BP 123/63; PULSE 69; RESP 17; O2SAT 94
--- NOTE | 2024-02-12 11:40 | ECG_ITS ---
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 Measurements Intervals [place] Rate: 58 P: 80 TN: 207 QRS: 71 QRSD: 92 T: 66 QT: 425 QTc: 419 Interpretive Statements SINUS BRADYCARDIA Compared to ECG 11/25/2023 18:44:51 Sinus rhythm no longer present Ventricular premature complex(es) no longer present Electronically Signed On 02-12-2024 13:44:17 CDT by Tobias Arce M.D. [email or web address]
--- NOTE | 2024-02-12 11:54 | XR_ITS ---
WS: [id number] Exam: XR chest 1V portable [id number] Date/Time of Exam: 02/12/2024 11:54 AM Reason For Exam: dyspnea/cough Comparison 11/25/2023. The lungs are clear. Normal cardiomediastinal silhouette for technique. No pleural effusions. Bony st ructures are intact. Monitoring leads superimpose the chest. XR/XR chest 1V portable [id number] IMPRESSION: 1. No acute cardiopulmonary finding.
--- NOTE | 2024-02-12 12:31 | ED_ITS ---
HPI - Weakness 2 General: Chief complaint: Weakness Stated complaint: weakness Time Seen by Provider: 02/12/24 11:49 Source: patient Mode of arrival: ambulatory History of Present Illness: 83-year-old female presents to the [facility] ency room complaining of generalized weakness no chest pain or discomfort she had some pain in her right shoulder at times radiating at her neck across the top of her shoulder. No fevers sweats chills no abdominal pain no dysuria urgency or frequency. She was recently hospitalized at [facility] in [place] discharged home last week they had adjusted some of her medications at that time. She does not have her discharge medication list with her. MD Complaint: generalized weakness Associated symptoms: Denies chest pain, chills, dysuria or fever(s) Review of Systems 2 Const: Denies: fever(s) or chills Card: Denies: chest pain Resp: Denies: dyspnea GI: Denies: abdominal pain : Denies: dysuria, urinary frequency or urinary urgency Musc: Denies: neck pain or back pain Skin/Breast: Denies: rash PFSH ED 2 PFSH: Medical History Bigeminy Atrial fibrillation History of kidney cancer CRI (chronic renal insufficiency) Diabetes mellitus S/p nephrectomy (~2014) Hypertension Surgical History S/P thyroidectomy S/P hysterectomy S/P bilateral oophorectomy S/P hip replacement H/O kidney removal Family History Father Hypertension Myocardial infarction Mother Stroke Family/Other CAD (coronary artery disease) Social History Smoking and tobacco/nicotine status: never used tobacco/nicotine Second hand smoke exposure: Yes (reports parents and both smoked) Alcohol intake: never Substance/Drug Use: never Adopted: No Caregiver/support person: Yes Lives independently: Yes Household members: none Housing: House Number of children: 4 Number of grandchildren: 3 Highest education level completed: 8th Grade service: No Current occupational status: retired Current occupational exposures/hazards: No 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 Pets and animals: Yes Sexually active: No Do you think of yourself as: Straight/Heterosexual Current gender identity: Female Special chance needs: No Agree to transfusion: Yes Physical Exam 2 Const: GENERAL APPEARANCE: cooperative ORIENTATION/CONSCIOUSNESS: Yes awake HENMT: COMMON NORMALS: normocephalic, atraumatic and hearing grossly normal bilaterally HEAD & SCALP: normocephalic and atraumatic Resp: COMMON NORMALS: normal respiratory effort, No retractions, No use of accessory muscles and clear to auscultation bilaterally AUSCULTATION: clear to auscultation bilaterally Cardio: COMMON NORMALS: regular rhythm and No murmurs present (Cardio) R ATE: bradycardic RHYTHM: regular rhythm GI: COMMON NORMALS: Soft to palpation and No hepatosplenomegaly present A USCULTATION: Yes normoactive bowel sounds PALPATION: Yes Soft to palpation, No Tenderness to palpation present (GI), No Guarding due to palpation present (GI) and Yes No hepatosplenomegaly present Extremity: COMMON NORMALS: normal to inspection, capillary refill normal, no clubbing, cyanosis or edema, no calf tenderness and no pedal edema Skin: COMMON NORMALS: no rashes or lesions noted GENERAL SKIN EXAM: no rashes or lesions noted Course 2 Vital Signs: Vital signs: Vital Signs Temperature 98.1 F 02/12/24 11:37 Pulse Rate 66 02/12/24 15:50 Respiratory Rate 15 02/12/24 15:50 Blood Pressure 124/65 02/12/24 15:50 Pulse Oximetry 93 02/12/24 15:50 Oxygen Delivery Me thod Room Air 02/12/24 14:00 MDM - Weakness Medical Decision Making Patient extremely weak. She is bradycardic. I reviewed her discharge notes they increased her carvedilol when she was at the hospital in [place]. Her cardiac enzymes did not show a trend upward she has no acute EKG changes she is denying any chest pain. No other symptoms at this time. She is extremely tired she is feeling little bit better after small fluid bolus. Discussed with the family we will discharge her home. Her lipase was elevated. But she has no epigastric or left upper quadrant pain. No acute findings on her chest x-ray. She has 2+ leukocyte Estrace in her urine but equal white-red and squamous cells think is contamination. Will hold off on starting her oral antibiotics at this time. She is somewhat better with fluid and her blood pressure has improved. She has anemia but is chronic and stable at this time. Discharge her home have her follow-up with her primary care doctor as soon as she can. Return if she has any worsening problems. Medical Records I reviewed the patient's medical records. Lab Data I reviewed the patient's lab results. 02/12/24 12:29 02/12/24 12:29 Radiology Impressions Chest X-Ray 02/12/24 11:54 IMPRESSION: 1. No acute cardiopulmonary finding. Laboratory Results WBC 3.97 10^3/uL (3.29-11.43) 02/12/24 12: RBC 3.34 10^6/uL (3.85-5.65) L 02/12/24 12: Hgb 10.10 g/dL (11.27-16.99) L 02/12/24 12: Hct 30.4 % (36-47) L 02/12/24 12:29 MCV 91.0 fl (85-98) 02/12/24 12:29 MCH 30.2 pg (27-33) 02/12/24 12:29 MCHC 33.2 g/dL (30-55) 02/12/24 12:29 RDW 14.5 % (12.1-15.1) 02/12/24 12: Plt Count 128 10^3/cmm (157-399) L 02/12/24 12:29 MPV 10.6 fL (7.4-10.4) H 02/12/24 12:29 Neut % (Auto) 61.1 % 02/12/24 12:29 Lymph % (Auto) 28.5 % 02/12/24 12:29 Delta % (Auto) 9.6 % 02/12/24 12:29 Eos % (Auto) 0.5 % 02/12/24 12:29 Baso % (Auto) 0.0 % 02/12/24 12:29 Neut # (Auto) 2.43 10^3/uL (1.8-7.7) 02/12/24 12:29 Lymph # (Auto) 1.1 10^3/uL (0.8-4.8) 02/12/24 12:29 Delta # (Auto) 0.4 10^3/uL (0.2-0.9) 02/12/24 12:29 Eos # (Auto) 0.0 10^3/uL (0.0-0.8) 02/12/24 12: Baso # (Auto) 0.0 10^3/uL (0.0-0.1) 02/12/24 12:29 Nucleated RBC % (auto) 0 % 02/12/24 12: Nucleated RBCs # 0.0 /100WBC 02/12/24 12:29 Sodium 133 mmol/L (136-145) L 02/12/24 12:29 Potassium 4.7 mmol/L (3.5-5.1) 02/12/24 12: Chloride 100 mmol/L (98-107) 02/12/24 12: Carbon Dioxide 21 mmol/L (22-29) L 02/12/24 12: Anion Gap 16.7 (5-19) 02/12/24 12:29 BUN 63 mg/dL (8-23) H 02/12/24 12:29 Creatinine 2.1 mg/dL (0.5-0.9) H 02/12/24 12:29 GFR Calculation Not Reportable 02/12/24 12:29 Glucose 148 mg/dL (65-115) H 02/12/24 12:29 Calculated Osmolality 297 mOsm/kg (285-295) H 02/12/24 12:29 Lactic Acid 0.6 mmol/L (0.5-2.2) 02/12/24 12: Calcium 7.7 mg/dL (8.5-10.5) L 02/12/24 12:29 Magnesium 2.1 mg/dL (1.7-2.3) 02/12/24 12:29 Total Bilirubin 0.3 mg/dL (0.15-1.2) 02/12/24 12:29 AST 26 U/L (0-32) 02/12/24 12: ALT 24 U/L (0-33) 02/12/24 12:29 Alkaline Phosphatase 60 U/L (35-105) 02/12/24 12:29 Troponin T Baseline 60 ng/L (0-10) H 02/12/24 12:29 Troponin T 120 Minute 59.29 ng/L (0-10) H 02/12/24 14:03 Delta Troponin T -0.71 ABS# (0-10) L 02/12/24 14:03 Total Protein 6.2 g/dL (6.6-8.7) L 02/12/24 12:29 Albumin 3.4 g/dL (3.5-5.2) L 02/12/24 12:29 Globulin 2.8 g/dL (1.3-4.6) 02/12/24 12:29 Lipase 126 U/L (13-60) H 02/12/24 12:29 Urine Color Yellow (Yellow) 02/12/24 12:53 Urine Appearance Clear (CLEAR) 02/12/24 12:53 Urine pH 5 (5-7) 02/12/24 12:53 Ur Specific [place] 1.010 (1.005-1.030) 02/12/24 12:53 Urine Protein 3+ (Negative) H 02/12/24 12:53 Urine Glucose (UA) Norm (Normal) 02/12/24 12:53 Urine Ketones Negative (Negative) 02/12/24 12:53 Urine Blood Neg (Negative) 02/12/24 12:53 Urine Nitrate Negative (Negative) 02/12/24 12:53 Urine Bilirubin Neg (Negative) 02/12/24 12:53 Urine Urobilinogen Norm mg/dL (Negative) 02/12/24 12:53 Ur Leukocyte Esterase 2+ (Negative) H 02/12/24 12:53 Urine RBC 0-4 /hpf (0-2) H 02/12/24 12:53 Urine WBC 0-4 /hpf (0-5) H 02/12/24 12:53 Ur Squamous Epith Cells 0-4 /hpf (0-5) H 02/12/24 12:53 Ur Transition Epith Cell 0-4 /hpf 02/12/24 12:53 Amorphous Sediment Not Reportable 02/12/24 12:53 Urine Bacteria Trace /hpf (NONE) 02/12/24 12:53 Urine Mucus Trace /hpf 02/12/24 12:53 All radiology interpretation(s) finalized by discharge Discharge Plan Discharge Patient Disposition: Home Clinical Impression: Medication side effect Hypertension Qualifiers: Hypertension type: primary hypertension Qualified Code(s): I10 - Essential (primary) hypertension Condition: Stable Prescriptions: No Action multivitamin Tablet 1 tab PO DAILY atorvastatin 40 mg tablet 40 mg PO BEDTIME Qty: 90 3RF Cardizem CD 240 mg capsule,extended release 24hr 240 mg PO Q24H Qty: 180 3RF losartan 50 mg tablet 100 mg PO DAILY Qty: 180 3RF carvedilol 12.5 mg tablet 12.5 mg PO BID hydralazine 25 mg tablet 25 mg PO QID amlodipine 10 mg tablet 10 mg PO DAILY clobetasol 0.05 % ointment 1 applic TOPICAL BID PRN (Reason: UNKNOWN) fluticasone propionate [Flonase Allergy Relief] 50 mcg/actuation spray,suspension 1 spray intranasal BID PRN (Reason: ALLERGIES) Rx Instructions: administer into each nostril aspirin [Adult Low Dose Aspirin] 81 mg tablet,delayed release (DR/EC) 81 mg PO DAILY Qty: 30 0RF Discharge Orders: Discharge ED (Routine); Ordered 02/12/24 Ordered By: Corby Frias Referrals: Cynthia Martinez [Primary Care Provider] - Discharge Diet: Usual diet Discharge Activity: Resume usual activity Patient Instructions: Opioid Safety, Pain Management Activity Restrictions/Additional Instructions: Thank you for choosing [facility] for your healthcare needs today. It is very important that you follow up as instructed or that you return to the Emergency Department should you have concerns or if your condition changes or worsens in any way. You were seen today for complaints of weakness. Suspect some of your symptoms are from the recent increase in the carvedilol. Feeling weak and tired can be a result of a side effect of this medication. You have some mild anemia which has been stable over the last 2 months. You were slightly dehydrated we gave a small fluid bolus. Recommend you continue your medications and follow-up with your primary care doctor within the next week to reevaluate. Coding Level of Care Code ED Retirement Actuary for Ana Castillo
[2024-02-12 12:37] LABS: Eosinophils % 0.5 %; Hematocrit 30.4 % (36-47); Lymphocytes # 1.1 10^3/uL (0.8-4.8); Lymphocytes % 28.5 %; Mean Corpuscular HGB Conc 33.2 g/dL (30-55); Mean Corpuscular Hemoglobin 30.2 pg (27-33); Mean Platelet Volume 10.6 fL (7.4-10.4); Monocytes # 0.4 10^3/uL (0.2-0.9); Monocytes % 9.6 %; Neutrophils # 2.43 10^3/uL (1.8-7.7); Neutrophils % 61.1 %; Nucleated Red Blood Cells % 0 %; Platelet Count 128 10^3/cmm (157-399); Red Blood Count 3.34 10^6/uL (3.85-5.65); Red Cell Distribution Width 14.5 % (12.1-15.1); White Blood Count 3.97 10^3/uL (3.29-11.43)
[2024-02-12 12:54] LABS: Alanine Aminotransferase 24 U/L (0-33); Albumin Level 3.4 g/dL (3.5-5.2); Alkaline Phosphatase 60 U/L (35-105); Anion Gap 16.7 (5-19); Aspartate Amino Transferase 26 U/L (0-32); Blood Urea Nitrogen 63 mg/dL (8-23); Calcium 7.7 mg/dL (8.5-10.5); Carbon Dioxide 21 mmol/L (22-29); Chloride 100 mmol/L (98-107); Globulin 2.8 g/dL (1.3-4.6); Glucose 148 mg/dL (65-115); Lipase 126 U/L (13-60); Magnesium 2.1 mg/dL (1.7-2.3); Osmolality Calculated 297 mOsm/kg (285-295); Potassium 4.7 mmol/L (3.5-5.1); Sodium 133 mmol/L (136-145); Total Bilirubin 0.3 mg/dL (0.15-1.2); Total Protein 6.2 g/dL (6.6-8.7); Troponin(5th) Baseline 60 ng/L (0-10)
[2024-02-12 12:56] LABS: Lactic Sepsis W/Reflex 0.6 mmol/L (0.5-2.2)
[2024-02-12 13:00] VITALS: BP 129/64; PULSE 61; RESP 18; O2SAT 94
[2024-02-12 13:10] LABS: Blood Urine Neg (Negative); Glucose Urine UA Norm (Normal); Ketones Urine Negative (Negative); Protein Urine 3+ (Negative); Urine Appearance Clear (CLEAR); Urine Color Yellow (Yellow); pH Urine 5 (5-7)
[2024-02-12 13:11] LABS: Add Urine Microscopic? YES; Bilirubin Urine Neg (Negative); Leukocyte Esterase Urine 2+ (Negative); Nitrate Urine Negative (Negative); Urobilinogen Urine Norm (Negative)
[2024-02-12 13:22] LABS: Add Urine Culture? No; Bacteria Urine TRACE /hpf; Mucus Urine TRACE /hpf; RBC Urine 0-4 /hpf (0-2); Squamous Epithelial Cell Urine 0-4 /hpf (0-5); Transitional Epi Cells Urine 0-4 /hpf; WBC Urine 0-4 /hpf (0-5)
--- NOTE | 2024-02-12 13:50 | ECG_ITS ---
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 Measurements Intervals [place] Rate: 69 P: 85 DE: 186 QRS: 71 QRSD: 88 T: 63 QT: 418 QTc: 450 Interpretive Statements SINUS RHYTHM WITH OCCASIONAL ECTOPIC PREMATURE COMPLEXES Compared to ECG 02/12/2024 11:40:01 Sinus bradycardia no longer present Electronically Signed On 02-12-2024 14:02:53 CDT by Tobias Arce M.D. [id number]
[2024-02-12 14:00] VITALS: BP 126/66; PULSE 67; O2SAT 94
[2024-02-12 14:32] LABS: Troponin 5 2HR 59.29 ng/L (0-10)
[2024-02-12 14:36] LABS: Troponin 5 2HR Delta -0.71 ABS# (0-10)
[2024-02-12] MEDS: sodium chloride 0.9% 500 ML 999 ML IV (15:03)
[2024-02-12 15:50] VITALS: BP 124/65; PULSE 66; RESP 15; O2SAT 93
== END 2024-02-12 15:51 | disposition home or self-care (01) ==
PROVIDERS: Emergency Provider Family Medicine; PCP Registered Nurse
DX: I10 Essential (primary) hypertension (principal); T44.7X5A Adverse effect of beta-adrenoreceptor antagonists, initial encounter; E11.9 Type 2 diabetes mellitus without complications; Z85.528 Personal history of other malignant neoplasm of kidney
CPT/HCPCS: 36415; 71045; 80053; 81001; 83605; 83690; 83735; 84484; 85025; 93005; 96365; 99285; J7040

== ENCOUNTER 2024-02-13 18:52 | Emergency (ER) | payer MEDICARE, SELFPAY ==
[2024-02-13 19:00] VITALS: BP 141/78; PULSE 18; RESP 20; TEMP 36.6; O2SAT 95; BMI 23.0
--- NOTE | 2024-02-13 19:17 | XRR_ITS ---
PROCEDURE INFORMATION: Exam: XR Chest Exam date and time: 02/13/2024 7:23 PM Age: 83 years old Clinical indication: Condition or disease; Patient HX: Weakness; SOB TECHNIQUE: Imaging protocol: Radiologic exam of the chest. Views: 1 view. COMPARISON: CR XR chest 1V portable [id number] 02/12/2024 12:09 PM FINDINGS: Lungs: No focal consolidation. Pleural spaces: No evidence of pneumothorax. No evidence of pleural effusion. Heart/Mediastinum: Cardiomediastinal silhouette is within normal limits. Bones/joints: No evidence of acute osseous abnormality. XR/XR chest 1V portable [id number] IMPRESSION: 1. No acute cardiopulmonary abnormality.
[2024-02-13 19:27] LABS: Add Urine Microscopic? YES; Bacteria Urine TRACE /hpf; Bilirubin Urine Neg (Negative); Blood Urine Neg (Negative); Glucose Urine UA Norm (Normal); Ketones Urine Negative (Negative); Leukocyte Esterase Urine Negative (Negative); Mucus Urine TRACE /hpf; Nitrate Urine Negative (Negative); Protein Urine 3+ (Negative); RBC Urine 0-4 /hpf (0-2); Specific Gravity, Urine 1.005 (1.005-1.030); Squamous Epithelial Cell Urine 0-4 /hpf (0-5); Urine Appearance Clear (CLEAR); Urine Color Yellow (Yellow); Urobilinogen Urine Neg (Negative); pH Urine 5 (5-7)
[2024-02-13 19:28] LABS: Eosinophils % 0.8 %; Lymphocytes # 1.6 10^3/uL (0.8-4.8); Lymphocytes % 31.9 %; Mean Corpuscular HGB Conc 32.7 g/dL (30-55); Mean Corpuscular Hemoglobin 29.8 pg (27-33); Mean Corpuscular Volume 90.9 fl (85-98); Mean Platelet Volume 9.8 fL (7.4-10.4); Monocytes # 0.6 10^3/uL (0.2-0.9); Monocytes % 11.6 %; Neutrophils # 2.76 10^3/uL (1.8-7.7); Neutrophils % 55.1 %; Nucleated Red Blood Cells % 0 %; Platelet Count 186 10^3/cmm (157-399); Red Blood Count 3.63 10^6/uL (3.85-5.65); Red Cell Distribution Width 14.5 % (12.1-15.1); White Blood Count 5.01 10^3/uL (3.29-11.43)
[2024-02-13 19:31] VITALS: BP 149/75; PULSE 73; RESP 18; O2SAT 93
[2024-02-13] MEDS: sodium chloride 0.9% 1,000 ML 999 ML IV (19:37)
[2024-02-13 19:46] LABS: Alanine Aminotransferase 27 U/L (0-33); Albumin Level 3.7 g/dL (3.5-5.2); Alkaline Phosphatase 66 U/L (35-105); Anion Gap 16.7 (5-19); Aspartate Amino Transferase 25 U/L (0-32); Blood Urea Nitrogen 46 mg/dL (8-23); Calcium 8.4 mg/dL (8.5-10.5); Carbon Dioxide 21 mmol/L (22-29); Chloride 104 mmol/L (98-107); Creatinine Clr Calc Pharmacy 23.8195; Glucose 131 mg/dL (65-115); Magnesium 2.1 mg/dL (1.7-2.3); Osmolality Calculated 298 mOsm/kg (285-295); Phosphorus 2.9 mg/dL (2.5-4.5); Potassium 4.7 mmol/L (3.5-5.1); Sodium 137 mmol/L (136-145); Total Bilirubin 0.4 mg/dL (0.15-1.2); Total Protein 6.7 g/dL (6.6-8.7)
--- NOTE | 2024-02-13 20:52 | ECG_ITS ---
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 Measurements Intervals [place] Rate: 73 P: 96 [place]: 164 QRS: 138 QRSD: 89 T: 140 QT: 382 QTc: 423 Interpretive Statements SINUS RHYTHM WITH OCCASIONAL ECTOPIC PREMATURE COMPLEXES ARM LEADS REVERSED [INVERTED P AND QRS IN I] Compared to ECG 02/12/2024 13:50:37 No significant changes Electronically Signed On 02-14-2024 9:55:08 CDT by Tobias Arce M.D. [id number]
[2024-02-13 21:01] LABS: NT Pro B Type Natriuretic Pept < 36 pg/mL (0-450)
--- NOTE | 2024-02-13 21:06 | ED_ITS ---
HPI - Weakness 2 General: Chief complaint: Weakness Stated complaint: WEAKNESS Time Seen by Provider: 02/13/24 19:00 History of Present Illness: 83-year-old female who was here in the E yesterday complaining of generalized weakness. She returns this evening, with the same complaint. She was given a liter of fluid evidently, and told that her weakness may be due to her medication. She did not feel much better today so she returns. She has no fever. No urinary symptoms. She does have some shortness of breath with ambulation. She notes that she trembles when she tries to ambulate. She denies any chest discomfort at all. Associated symptoms: Denies chest pain, chills, confusion, fever(s), headache(s), nausea or vomiting Review of Systems 2 Const: Denies: fever(s), chills or body aches Eyes: Denies: change in vision Card: Denies: chest pain or palpitations Resp: Reports: dyspnea; Denies: productive cough, non-productive cough or wheezing GI: Denies: abdominal pain, nausea, vomiting, diarrhea or hematochezia : Denies: difficulty voiding Skin/Breast: Denies: rash Neuro: Denies: headache(s), dizziness or confusion PFSH ED 2 PFSH: Medical History Bigeminy Atrial fibrillation History of kidney cancer CRI (chronic renal insufficiency) Diabetes mellitus S/p nephrectomy (~2014) Hypertension Surgical History S/P thyroidectomy S/P hysterectomy S/P bilateral oophorectomy S/P hip replacement H/O kidney removal Family History Father Hypertension Myocardial infarction Mother Stroke Family/Other CAD (coronary artery disease) Social History Smoking and tobacco/nicotine status: never used tobacco/nicotine Second hand smoke exposure: Yes (reports parents and both smoked) Alcohol intake: never Substance/Drug Use: never Adopted: No Caregiver/support person: Yes Lives independently: Yes Household members: none Housing: House Number of children: 4 Number of grandchildren: 3 Highest education level completed: 8th Grade service: No Current occupational status: retired Current occupational exposures/hazards: No 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 Pets and animals: Yes Sexually active: No Do you think of yourself as: Straight/Heterosexual Current gender identity: Female Special chance needs: No Agree to transfusion: Yes Physical Exam 2 Const: COMMON NORMALS: no acute distress GENERAL APPEARANCE: cooperative and frail appearing; not ill appearing HENMT: COMMON NORMALS: normocephalic, atraumatic and Normal external nose present HEAD & SCALP: normocephalic and atraumatic FACE & SINUS: normal facial exam and face symmetric NOSE: Normal external nose present Eye: COMMON NORMALS: Equal, round and reactive pupils present and EOMs intact bilaterally PUPIL: Yes Equal, round and reactive pupils present Neck/C-Spine: GENERAL: Yes trachea midline Chest: CHEST: Yes Symmetrical chest wall rise Resp: COMMON NORMALS: normal respiratory effort, No retractions, No use of accessory muscles and clear to auscultation bilaterally AUSCULTATION: clear to auscultation bilaterally Cardio: COMMON NORMALS: regular rate and regular rhythm RATE: regular rate RHYTHM: regular rhythm GI: COMMON NORMALS: Normal to inspection, nondistended, normoactive bowel sounds present Extremity: COMMON NORMALS: no pedal edema Neuro: JACQUELINE COMA SCALE: document GCS findings [place] coma scale eye opening: Spontaneous Jacqueline coma scale verbal response: Orientated [place] coma scale motor response: Obey commands Jacqueline coma scale total score: 15 S ENSORY EXAM: Yes extremities (intact) Psych: COMMON NORMALS: speech normal SPEECH: Yes normal speech Skin: COMMON NORMALS: no rashes or lesions noted GENERAL SKIN EXAM: no rashes or lesions noted Course 2 Vital Signs: Vital signs: Vital Signs Temperature 98 F 02/13/24 19:00 Pulse Rate 73 02/13/24 22:00 Respiratory Rate 18 02/13/24 22:00 Blood Pressure 167/95 02/13/24 22:00 Pulse Oximetry 93 02/13/24 22:00 Oxygen Delivery Me thod Room Air 02/13/24 21:59 MDM - Weakness Medical Decision Making 83-year-old mildly frail female here with generalized weakness. Her vitals are essentially normal at this point. Her CBC shows a hemoglobin of 11. Her creatinine is down to 1.5 from 2 yesterday. BUN is down from 63-46. Blood sugars 130. Other laboratory is not remarkable. She has normal white blood cells in her urine with no leukocyte Estrace. She does have some protein in her urine. CRP is 3. No heart failure. Chest x-ray has not changed significantly since yesterday. She has been given a liter of fluid. She is ambulated in the ER. She feels improved. Will allow discharge for return for worsening symptoms. Lab Data 02/13/24 19:18 02/13/24 19:18 Radiology Impressions Chest X-Ray 02/13/24 19:17 IMPRESSION: 1. No acute cardiopulmonary abnormality. Laboratory Results WBC 5.01 10^3/uL (3.29-11.43) 02/13/24 19:18 RBC 3.63 10^6/uL (3.85-5.65) L 02/13/24 19:18 Hgb 10.80 g/dL (11.27-16.99) L 02/13/24 19:18 Hct 33.0 % (36-47) L 02/13/24 19:18 MCV 90.9 fl (85-98) 02/13/24 19:18 MCH 29.8 pg (27-33) 02/13/24 19:18 MCHC 32.7 g/dL (30-55) 02/13/24 19:18 RDW 14.5 % (12.1-15.1) 02/13/24 19:18 Plt Count 186 10^3/cmm (157-399) 02/13/24 19:18 MPV 9.8 fL (7.4-10.4) 02/13/24 19:18 Neut % (Auto) 55.1 % 02/13/24 19:18 Lymph % (Auto) 31.9 % 02/13/24 19:18 [place] % (Auto) 11.6 % 02/13/24 19:18 Eos % (Auto) 0.8 % 02/13/24 19:18 Baso % (Auto) 0.0 % 02/13/24 19:18 Neut # (Auto) 2.76 10^3/uL (1.8-7.7) 02/13/24 19:18 Lymph # (Auto) 1.6 10^3/uL (0.8-4.8) 02/13/24 19:18 [place] # (Auto) 0.6 10^3/uL (0.2-0.9) 02/13/24 19:18 Eos # (Auto) 0.0 10^3/uL (0.0-0.8) 02/13/24 19:18 Baso # (Auto) 0.0 10^3/uL (0.0-0.1) 02/13/24 19:18 Nucleated RBC % (auto) 0 % 02/13/24 19:18 Nucleated RBCs # 0.0 /100WBC 02/13/24 19:18 Sodium 137 mmol/L (136-145) 02/13/24 19:18 Potassium 4.7 mmol/L (3.5-5.1) 02/13/24 19:18 Chloride 104 mmol/L (98-107) 02/13/24 19:18 Carbon Dioxide 21 mmol/L (22-29) L 02/13/24 19:18 Anion Gap 16.7 (5-19) 02/13/24 19:18 BUN 46 mg/dL (8-23) H 02/13/24 19:18 Creatinine 1.5 mg/dL (0.5-0.9) H 02/13/24 19:18 GFR Calculation Not Reportable 02/13/24 19:18 Glucose 131 mg/dL (65-115) H 02/13/24 19:18 Calculated Osmolality 298 mOsm/kg (285-295) H 02/13/24 19:18 Calcium 8.4 mg/dL (8.5-10.5) L 02/13/24 19:18 Phosphorus 2.9 mg/dL (2.5-4.5) 02/13/24 19:18 Magnesium 2.1 mg/dL (1.7-2.3) 02/13/24 19:18 Total Bilirubin 0.4 mg/dL (0.15-1.2) 02/13/24 19:18 AST 25 U/L (0-32) 02/13/24 19:18 ALT 27 U/L (0-33) 02/13/24 19:18 Alkaline Phosphatase 66 U/L (35-105) 02/13/24 19:18 C-Reactive Protein 3.0 mg/L (0.0-4.9) 02/13/24 19:18 NT-Pro-B Natriuret Pep < 36 pg/mL (0-450) 02/13/24 19:35 Total Protein 6.7 g/dL (6.6-8.7) 02/13/24 19:18 Albumin 3.7 g/dL (3.5-5.2) 02/13/24 19:18 Globulin 3.0 g/dL (1.3-4.6) 02/13/24 19:18 Urine Color Yellow (Yellow) 02/13/24 19:05 Urine Appearance Clear (CLEAR) 02/13/24 19:05 Urine pH 5 (5-7) 02/13/24 19:05 Ur Specific [place] 1.005 (1.005-1.030) 02/13/24 19:05 Urine Protein 3+ (Negative) H 02/13/24 19:05 Urine Glucose (UA) Norm (Normal) 02/13/24 19:05 Urine Ketones Negative (Negative) 02/13/24 19:05 Urine Blood Neg (Negative) 02/13/24 19:05 Urine Nitrate Negative (Negative) 02/13/24 19:05 Urine Bilirubin Neg (Negative) 02/13/24 19:05 Urine Urobilinogen Neg mg/dL (Negative) 02/13/24 19:05 Ur Leukocyte Esterase Negative (Negative) 02/13/24 19:05 Urine RBC 0-4 /hpf (0-2) H 02/13/24 19:05 Urine WBC 5-10 /hpf (0-5) H 02/13/24 19:05 Ur Squamous Epith Cells 0-4 /hpf (0-5) H 02/13/24 19:05 Amorphous Sediment Not Reportable 02/13/24 19:05 Urine Bacteria Trace /hpf (NONE) 02/13/24 19:05 Urine Mucus Trace /hpf 02/13/24 19:05 XR interpretation done by ED provider, pending radiology final review Discharge Plan Discharge Patient Disposition: Home Clinical Impression: Generalized weakness, Proteinuria, Chronic kidney disease Condition: Stable Prescriptions: No Action multivitamin Tablet 1 tab PO DAILY atorvastatin 40 mg tablet 40 mg PO BEDTIME Qty: 90 3RF Cardizem CD 240 mg capsule,extended release 24hr 240 mg PO Q24H Qty: 180 3RF losartan 50 mg tablet 100 mg PO DAILY Qty: 180 3RF carvedilol 12.5 mg tablet 12.5 mg PO BID hydralazine 25 mg tablet 25 mg PO QID amlodipine 10 mg tablet 10 mg PO DAILY clobetasol 0.05 % ointment 1 applic TOPICAL BID PRN (Reason: UNKNOWN) fluticasone propionate [Flonase Allergy Relief] 50 mcg/actuation spray,suspension 1 spray intranasal BID PRN (Reason: ALLERGIES) Rx Instructions: administer into each nostril aspirin [Adult Low Dose Aspirin] 81 mg tablet,delayed release (DR/EC) 81 mg PO DAILY Qty: 30 0RF Discharge Orders: Discharge ED (Routine); Ordered 02/13/24 Ordered By: Dann Veras Referrals: Cynthia Martinez [Primary Care Provider] - 1-3 days Patient Instructions: Dehydration (ED), Chronic Kidney Disease (ED), Weakness (ED), Opioid Safety, Pain Management Activity Restrictions/Additional Instructions: Your dehydration is improved to some degree since yesterday. Your kidney function is improved today. Watch your blood pressure closely. See your doctor this coming week. Return for worsening symptoms. Coding Level of Care Code ED Ground Hand for Ana Castillo
[2024-02-13 21:17] VITALS: BP 161/80; PULSE 73; RESP 18; O2SAT 93
[2024-02-13 21:59] VITALS: BP 167/95; PULSE 73; RESP 18; O2SAT 93
[2024-02-13 22:00] VITALS: BP 167/95; PULSE 73; RESP 18; O2SAT 93
== END 2024-02-13 21:57 | disposition home or self-care (01) ==
PROVIDERS: Emergency Provider Emergency Medicine; PCP Registered Nurse
DX: R53.1 Weakness (principal); R80.9 Proteinuria, unspecified; E11.22 Type 2 diabetes mellitus with diabetic chronic kidney disease; I12.9 Hypertensive chronic kidney disease with stage 1 through stage 4 chronic kidney disease, or unspecified chronic kidney disease; N18.9 Chronic kidney disease, unspecified; Z85.528 Personal history of other malignant neoplasm of kidney; Z77.22 Contact with and (suspected) exposure to environmental tobacco smoke (acute) (chronic); Z79.82 Long term (current) use of aspirin
CPT/HCPCS: 71045; 80053; 81001; 83735; 83880; 84100; 85025; 86140; 93005; 96360; 96361; 99285; J7030